=== PATIENT | male | born 1970 ===

== ENCOUNTER 2022-04-26 16:41 | Inpatient (IN) | payer MEDICAID ==
[2022-04-26] MEDS ORDERED: SODIUM CHLORIDE 0.9% 1000 ML 1,000 ML IV ONE ×2 (17:24→20:38)
--- NOTE | 2022-04-26 17:59 | XRay Report ---
CHEST 1 VIEW INDICATION / CLINICAL INFORMATION: Altered Mental Status. COMPARISON: None available. FINDINGS: SUPPORT DEVICES: None. HEART / MEDIASTINUM: No significant abnormality. LUNGS / PLEURA: No significant pulmonary or pleural abnormality. No pneumothorax. ADDITIONAL FINDINGS: No significant additional findings. IMPRESSION: 1. No acute findings. Signer Name: Carlos Eduardo Joyner MD Signed: 04/26/2022 5:55 PM Workstation Name: [facility] [id number]
[2022-04-26] MEDS ORDERED: LORazepam 2 MG/ML VIAL IV ONE (18:11)
[2022-04-26 19:17] LABS: Basophils % (Auto) 0.3 % (0.0-1.8); Eosinophils # (Auto) 0.1 K/mm3 (0.0-0.4); Eosinophils % (Auto) 0.5 % (0.0-4.3); Hematocrit 40.7 % (35.5-45.6); Hemoglobin 13.6 gm/dl (11.8-15.2); Lymphocytes # (Auto) 1.4 K/mm3 (1.2-5.4); Lymphocytes % (Auto) 14.6 % (13.4-35.0); Mean Corpuscular HGB Conc 33 % (32-34); Mean Corpuscular Volume 89 fl (84-94); Monocytes # (Auto) 0.6 K/mm3 (0.0-0.8); Monocytes % (Auto) 6.7 % (0.0-7.3); Platelet Count 242 K/mm3 (140-440); Red Cell Distribution Width 15.9 % (13.2-15.2)
[2022-04-26 19:25] LABS: Alanine Aminotransferase 53 units/L (7-56); Albumin 4.7 g/dL (3.9-5); Blood Urea Nitrogen 24 mg/dL (9-20); Calcium 9.7 mg/dL (8.4-10.2); Hemolysis Index 42
[2022-04-26 19:26] LABS: BUN/Creatinine Ratio 34
--- NOTE | 2022-04-26 19:31 | Cat Scan Report ---
CT HEAD WITHOUT CONTRAST INDICATION / CLINICAL INFORMATION: Altered Mental Status. TECHNIQUE: All CT scans at this location are performed using CT dose reduction for ALARA by means of automated e xposure control. COMPARISON: None available. FINDINGS: HEMORRHAGE: No evidence of intracranial hemorrhage or extra-axial fluid collection. EXTRA-AXIAL SPACES: Focal dilatation of the right sylvian fissure is noted. There is enlargement of c ortical sulci along the lateral and inferior aspect of the right temporal lobe as well and is ex vacu o enlargement of sulci in the right frontal operculum. VENTRICULAR SYSTEM: Ex vacuo enlargement of the temporal horn of the right lateral ventricle is noted . Central greater than cortical atrophy is demonstrated greater than expected for age 52 years. CEREBRAL PARENCHYMA: Encephalomalacia is seen throughout the anterior pole of the left temporal lobe and in the supraorbital gyri and anterior pole of the right frontal lobe. Similar findings are seen t o a lesser degree in the region of the left gyrus rectus. The distribution of these abnormalities sug gests remote traumatic brain injury. Correlation with clinical history is advised. MIDLINE SHIFT OR HERNIATION: There is no mass effect. CEREBELLUM / BRAINSTEM: Brainstem and cerebellum have an unremarkable appearance. MIDLINE STRUCTURES:No abnormalities of the pituitary gland or pineal region are identified. INTRACRANIAL VESSELS: Calcified atherosclerotic plaque is present along the cavernous segments of bot h internal carotid arteries. ORBITS: There is evidence of remote medial wall blowout fracture on the right. There is no indication of recent injury. Orbits have an otherwise unremarkable appearance. SOFT TISSUES of HEAD: No significant abnormality. CALVARIUM: Evaluation of bone windows reveals no abnormalities. PARANASAL SINUSES / MASTOID AIR CELLS: Visualized portions of the paranasal sinuses are free from inf lammatory mucosal disease. Mastoid air cells are normally pneumatized. IMPRESSION: 1. Findings suggest remote traumatic brain injury with encephalomalacia in the right frontal and temp oral lobes, and to a lesser degree, the left frontal lobe as described above. Correlation with clinic al history of head injury is suggested. 2. No acute intracranial abnormality. Signer Name: Maikel Perdomo MD Signed: 04/26/2022 7:27 PM Workstation Name: [id number]
[2022-04-26 19:33] LABS: INR 0.99 (0.87-1.13)
[2022-04-26 19:41] LABS: Amphetamine Screen,Urine Negative; Benzodiazepines Screen,Urine Negative; Cannabinoid Screen,Urine Negative; Cocaine Screen,Urine Negative; Methadone Screen,Urine Negative; Opiate Screen,Urine Negative
--- NOTE | 2022-04-26 20:19 | Emergency Department Report ---
<EUGENIO FELICIANO - Last Filed: 04/27/22 05:56> ED General Adult HPI - General Chief complaint: Altered Mental Status Stated complaint: NOT ACTING RIGHT Time Seen by Provider: 04/26/22 17:24 - Related Data Allergies Allergy/AdvReac Type Severity Reaction Status Date / Time Unable to Assess Allergy Unverified 04/26/22 16:44 ED Course - Reevaluation(s) Reevaluation #1: 04/26/22 21:31 THIS PATIENT WAS SIGNED OUT TO ME BY MY DAY TIME COLLEAG[employer] DR BEE; PATIENT HAVE HISTORY OF TBI; THEREFORE UNKNOWN BASELINE AND PATIENT CURRENTLY LIVES AT [facility] (?) FOR THE PAST 4 DAYS. PATIENT BROUGHT TO THE ER DUE TO CONFUSION. LABS REVEAL THAT PATIENT HAVE ELEVATED CK LEVEL IN 7K AND FLUID HAS BEEN ORDERED AND PENDING REPEAT CK LEVEL DRAW AT 10PM. I HAVE SEEN THE PATIENT MYSELF AND PATIENT SPEAKS ONLY MAORI. APPEARS IN NO DISTRESS/DISCOMFORT. I WILL FOLLOW UP ON THE LABS. 04/27/22 02:30 REVIEW OF LAB SHOWS NO SIGNIFICANT OF CK; I WILL GIVE ADDITIONAL BOLUS OF FLUID. 04/27/22 04:59 PER NURSE, SINCE IN THE ER, PATIENT HAVE ONLY RECEIVED 2 L OF BOLUS AND DIDN'T SEE THE OTHER ORDERS I PLACED; WILL BOLUS NOW SO WE CAN RECHECK PATIENT'S CK AND REST OF THE LAB TO SEE IF ANY IMPROVEMENT. I WILL SIGN OUT TO THE NEXT PHYS ICIAN. IF NO IMPROVEMENT, WILL NEED ADMISSION. ED Medical Decision Making - Lab Data Result diagrams: 04/26/22 18:21 04/27/22 01:25 ED Disposition Clinical Impression: Altered mental status, TBI (traumatic brain injury), COVID Rhabdomyolysis Qualifiers: Rhabdomyolysis type: non-traumatic Qualified Code(s): M62.82 - Rhabdomyolysis Disposition: 30 STILL A PATIENT Condition: Stable Referrals: PRIMARY CARE, [Primary Care Provider] - 3-5 Days <IRAIS NOLAND - Last Filed: 04/27/22 12:25> ED Course - Reevaluation(s) Reevaluation #1: 04/27/22 12:25 This is patient signed to me by Dr Fung while still waiting for a repeat total CK which is resulted to be still significantly elevated at 6798 mg/dl-- after the 3 rd LR-- will given ns 1L bolus at this time and recheck patient. Will also consider admission if not better after the 4th liter. Will also check for rapid covid. 04/27/22 12:29 Unsure the cause at this time but considering that this patient has TBI and will not be able to give helpful explanation--but could be drug side effect induced from neuroleptic, antidepressants, statins, or antipsychotics. No medication list available for review at this time. ED Medical Decision Making - Lab Data Result diagrams: 04/26/22 18:21 04/27/22 06:48 ED Disposition Does the pt Need Aspirin: No <MAINOR BEE - Last Filed: 04/27/22 22:27> ED General Adult HPI - General PUI?: No Source: patient, EMS Mode of arrival: Stretcher Limitations: Altered Mental Status - History of Present Illness Initial comments: T ARRIVING FROM [facility], "NOT ACTING RIGHT" TODAY, HAS BEEN THERE 4 DAYS. -: unknown Improves with: none Worsens with: none Associated Symptoms: confusion, chest pain Treatments Prior to Arrival: none ED Review of Systems ROS: Stated complaint: NOT ACTING RIGHT Other details as noted in HPI Constitutional: denies: chills, fever Eyes: denies: eye pain, eye discharge, vision change ENT: denies: ear pain, throat pain Respiratory: denies: cough, shortness of breath, wheezing Cardiovascular: denies: chest pain, palpitations Endocrine: no symptoms reported Gastrointestinal: denies: abdominal pain, nausea, diarrhea Genitourinary: denies: urgency, dysuria Musculoskeletal: denies: back pain, joint swelling, arthralgia Skin: denies: rash, lesions Neurological: denies: headache, weakness, paresthesias Psychiatric: denies: anxiety, depression Hematological/Lymphatic: denies: easy bleeding, easy bruising ED Past Medical Hx - Past Medical History Previous Medical History?: No Hx Hypertension: No ED Physical Exam - General Limitations: Altered Mental Status General appearance: alert, other (awake but reposnds only to pain ) - Head Head exam: Present: atraumatic, normocephalic - Eye Eye exam: Present: normal appearance - ENT ENT exam: Present: mucous membranes moist - Neck Neck exam: Present: normal inspection - Respiratory Respiratory exam: Present: normal lung sounds bilaterally. Absent: respiratory distress - Cardiovascular Cardiovascular Exam: Present: regular rate, normal rhythm. Absent: systolic murmur, diastolic murmur, rubs, gallop - GI/Abdominal GI/Abdominal exam: Present: soft, normal bowel sounds - Rectal Rectal exam: Present: deferred - Extremities Exam Extremities exam: Present: normal inspection - Back Exam Back exam: Present: normal inspection - Neurological Exam Neurological exam: Present: alert, oriented X3 - Expanded Neurological Exam Expanded Neurological exam: Present: innattentive Best Eye Response ([place]): (4) open spontaneously Best Motor Response ([place]): (5) localizes to pain Best Verbal Response ([place]): (1) no verbal response [place] Total: 10 - Psychiatric Psychiatric exam: Present: flat affect - Skin Skin exam: Present: warm, dry, intact, normal color. Absent: rash ED Course Vital Signs 04/26/22 04/26/22 04/26/22 16:42 17:21 17:31 Temperature 98.5 F Pulse Rate 110 H 112 H Respiratory 18 18 17 Rate Blood Pressure 134/76 Blood Pressure 156/80 [Left] O2 Sat by Pulse 95 97 Oximetry 04/26/22 04/26/22 04/26/22 17:34 17:45 18:13 Temperature 98.3 F Pulse Rate 111 H 107 H Respiratory 20 24 Rate Blood Pressure 134/76 Blood Pressure [Left] O2 Sat by Pulse Oximetry 04/26/22 04/26/22 04/26/22 18:15 18:31 18:45 Temperature Pulse Rate 106 H 89 88 Respiratory 19 19 22 Rate Blood Pressure 122/74 109/50 134/76 Blood Pressure [Left] O2 Sat by Pulse 95 93 96 Oximetry 04/26/22 04/26/22 04/26/22 19:00 19:15 19:31 Temperature Pulse Rate 90 85 76 Respiratory 21 18 15 Rate Blood Pressure 109/50 114/60 106/61 Blood Pressure [Left] O2 Sat by Pulse 96 94 96 Oximetry 04/26/22 04/26/22 04/26/22 19:45 20:01 20:15 Temperature Pulse Rate 84 79 84 Respiratory 20 15 16 Rate Blood Pressure 122/53 107/66 102/65 Blood Pressure [Left] O2 Sat by Pulse 97 98 98 Oximetry 04/26/22 04/26/22 04/26/22 20:31 20:45 20:47 Temperature Pulse Rate 84 81 79 Respiratory 16 16 16 Rate Blood Pressure 104/66 104/66 107/65 Blood Pressure [Left] O2 Sat by Pulse 97 97 98 Oximetry 04/26/22 04/26/22 04/26/22 21:01 21:15 21:31 Temperature Pulse Rate 79 82 104 H Respiratory 17 16 23 Rate Blood Pressure 107/65 100/55 123/76 Blood Pressure [Left] O2 Sat by Pulse 98 97 98 Oximetry 04/26/22 04/26/22 04/26/22 21:45 22:01 22:26 Temperature Pulse Rate 101 H 122 H Respiratory 26 H 16 Rate Blood Pressure 123/76 123/73 153/119 Blood Pressure [Left] O2 Sat by Pulse 97 Oximetry 04/27/22 04/27/22 04/27/22 08:33 08:45 09:01 Temperature Pulse Rate Respiratory Rate Blood Pressure 127/74 104/70 Blood Pressure [Left] O2 Sat by Pulse 95 94 96 Oximetry 04/27/22 04/27/22 04/27/22 09:15 09:31 09:45 Temperature Pulse Rate Respiratory Rate Blood Pressure 104/70 113/71 113/71 Blood Pressure [Left] O2 Sat by Pulse 96 97 97 Oximetry 04/27/22 04/27/22 04/27/22 10:01 10:15 10:31 Temperature Pulse Rate Respiratory Rate Blood Pressure 150/80 150/80 135/76 Blood Pressure [Left] O2 Sat by Pulse 97 98 95 Oximetry 04/27/22 04/27/22 04/27/22 10:33 10:45 11:01 Temperature Pulse Rate 88 Respiratory 18 Rate Blood Pressure 135/76 101/57 Blood Pressure [Left] O2 Sat by Pulse 97 96 97 Oximetry 04/27/22 04/27/22 04/27/22 11:15 11:31 11:45 Temperature Pulse Rate Respiratory Rate Blood Pressure 101/57 109/65 109/65 Blood Pressure [Left] O2 Sat by Pulse 97 97 97 Oximetry 04/27/22 04/27/22 04/27/22 12:01 12:15 12:31 Temperature Pulse Rate Respiratory Rate Blood Pressure 110/66 110/66 112/64 Blood Pressure [Left] O2 Sat by Pulse 98 98 99 Oximetry 04/27/22 04/27/22 04/27/22 12:45 13:01 13:15 Temperature Pulse Rate Respiratory Rate Blood Pressure 110/66 142/81 112/64 Blood Pressure [Left] O2 Sat by Pulse 98 98 96 Oximetry 04/27/22 04/27/22 04/27/22 13:31 13:45 14:00 Temperature Pulse Rate Respiratory Rate Blood Pressure 143/81 143/81 143/81 Blood Pressure [Left] O2 Sat by Pulse 98 98 97 Oximetry 04/27/22 04/27/22 04/27/22 14:16 14:30 15:23 Temperature Pulse Rate Respiratory Rate Blood Pressure 120/69 120/69 117/61 Blood Pressure [Left] O2 Sat by Pulse 95 Oximetry 04/27/22 04/27/22 04/27/22 15:31 15:45 16:01 Temperature Pulse Rate Respiratory Rate Blood Pressure 117/61 117/61 120/69 Blood Pressure [Left] O2 Sat by Pulse 94 95 96 Oximetry 04/27/22 16:15 Temperature Pulse Rate Respiratory Rate Blood Pressure 120/69 Blood Pressure [Left] O2 Sat by Pulse 97 Oximetry ED Medical Decision Making - Lab Data Result diagrams: 04/26/22 18:21 04/27/22 06:48 - EKG Data -: EKG Interpreted by Tx EKG shows normal: sinus rhythm - EKG Data Interpretation: nonspecific ST-T wave amy - Radiology Data Radiology results: report reviewed, image reviewed - Medical Decision Making pt work up was negative except for CK level , fluids given over 24 hours , CK is trending down not able to medically clear him will admit for fluids Critical care attestation.: If time is entered above; I have spent that time in minutes in the direct care of this critically ill patient, excluding procedure time. ED Disposition Is pt being admited?: Yes Does the pt Need Aspirin: No
[2022-04-26 20:29] LABS: C-Reactive Protein 7.2 mg/dL (0.00-1.30)
[2022-04-26 20:55] LABS: Bacteria,Urine 1+ /HPF (Negative)
[2022-04-26 20:58] LABS: Color,Urine Yellow (Yellow)
[2022-04-26 21:00] LABS: Bilirubin,Urine Negative (Negative)
[2022-04-26 21:01] LABS: Blood,Urine Negative (Negative)
[2022-04-26] MEDS ORDERED: LACTATED RINGERS 1,000 ML IV ONE (21:30)
[2022-04-27] MEDS ORDERED: LACTATED RINGERS 1,000 ML IV ONE ×2 (00:25→05:56)
[2022-04-27 02:08] LABS: BUN/Creatinine Ratio 31; Blood Urea Nitrogen 25 mg/dL (9-20); Calcium 9.3 mg/dL (8.4-10.2); Hemolysis Index 6
[2022-04-27 07:29] LABS: Blood Urea Nitrogen 23 mg/dL (9-20); Calcium 9.3 mg/dL (8.4-10.2); Hemolysis Index 2
[2022-04-27 07:30] LABS: BUN/Creatinine Ratio 38
[2022-04-27] MEDS ORDERED: LORazepam 2 MG/ML VIAL IV ONE ×2 (09:55→13:19)
[2022-04-27] MEDS ORDERED: SODIUM CHLORIDE 0.9% 1000 ML 1,000 ML ONE (13:02)
[2022-04-27] MEDS ORDERED: MORPHINE 4 MG/1 ML INJ IV PRN (22:30)
[2022-04-27] MEDS ORDERED: ONDANSETRON 4 MG/2 ML INJ IV PRN (22:30)
[2022-04-27] MEDS ORDERED: MAGNESIUM HYDROXIDE (MOM) ORAL LIQD UDC PO PRN (22:30)
[2022-04-27] MEDS ORDERED: ACETAMINOPHEN 325 MG TAB PO PRN (22:30)
--- NOTE | 2022-04-27 22:41 | History and Physical Report ---
History of Present Illness Date of examination: 04/27/22 Date of admission: 04/27/22 Chief complaint: Altered Mental Status History of present illness: 52-year-old male with known history of TBI and schizophrenia who has been in the emergency room for about 2 days for evaluation of confusion. Prior to presenting in the emergency room patient was living at the [facility] for the past few days. Patient is being prepared for admission into a mental health facility however, labs reveals elevated creatinine kinase in the 0's. Patient was unable to give any history at this time as he is confused and currently in restraints. Work-up in the emergency room: Chest x-ray, COVID test and urine drug screen were unremarkable. Patient has been receiving IV fluid with no significant reduction in the creatinine kinase level. Other labs reveals that patient is mildly dehydrated Patient has been admitted into the medical service for confusion and rhabdomyo lysis. Past History Past Medical History: other (TBI,H/O Recent COVID,H/O Schizophrenia) Past Surgical History: No surgical history Social history: no significant social history Family history: no significant family history Medications and Allergies Allergies Allergy/AdvReac Type Severity Reaction Status Date / Time Unable to Assess Allergy Unverified 04/26/22 16:44 Review of Systems ROS unobtainable: due to mental status Exam - Constitutional Vitals: Temp Pulse Resp BP Pulse Ox 98.3 F 88 18 120/69 97 04/26/22 17:34 04/27/22 10:33 04/27/22 10:33 04/27/22 16:15 04/27/22 16:15 General appearance: Present: no acute distress, well-nourished - EENT Eyes: Present: PERRL, EOM intact. Absent: scleral icterus ENT: hearing intact, clear oral mucosa, dentition normal - Neck Neck: Present: supple, normal ROM - Respiratory Respiratory effort: normal Respiratory: bilateral: CTA - Cardiovascular Rhythm: regular Heart Sounds: Present: S1 & S2. Absent: gallop, systolic murmur, diastolic murmur, rub, click - Extremities Extremities: no ischemia, pulses intact, pulses symmetrical, No edema, normal temperature, normal color, Full ROM Peripheral Pulses: within normal limits - Abdominal General gastrointestinal: Present: soft, non-tender, non-distended, normal bowel sounds. Absent: mass - Integumentary Integumentary: Present: clear, warm, dry, normal turgor. Absent: rash - Musculoskeletal Musculoskeletal: strength equal bilaterally - Psychiatric Psychiatric: cooperative, agitated (In restraint) - Neurologic Neurologic: CNII-XII intact, no focal deficits, moves all extremities HEART Score - HEART Score Troponin: Troponin T < 0.010 ng/mL (0.00-0.029) 04/26/22 18:21 Results - Labs CBC & Chem 7: 04/26/22 18:21 04/27/22 06:48 Labs: Abnormal lab results 04/27/22 04/27/22 04/27/22 Range/Units 01:25 06:48 17:57 Chloride 107.5 H (98-107) mmol/L Carbon Dioxide 16 L 17 L (22-30) mmol/L BUN 25 H 23 H (9-20) mg/dL Creatinine 0.6 L (0.8-1.3) mg/dL Glucose 124 H 116 H (75-100) mg/dL POC Glucose (70-105) mg/dL Total Creatine Kinase 7360 H 6798 H 5272 H (55-170) units/L 04/27/22 Range/Units 18:24 Chloride (98-107) mmol/L Carbon Dioxide (22-30) mmol/L BUN (9-20) mg/dL Creatinine (0.8-1.3) mg/dL Glucose (75-100) mg/dL POC Glucose 139 H (70-105) mg/dL Total Creatine Kinase (55-170) units/L Assessment and Plan Assessment: 1.Altered Mental Status 2.Rhabdomyolysis 3.H/O Recent COVID 4.H/O Schizophrenia Plan: 1.Start on generous IV fluid hydration 2.Monitor chemistry 3.Mental health evaluation 4.Resume routine home medications once reconciled DVT prophylaxis: SQ Heparin Code Status: Full code.
[2022-04-28] MEDS: SODIUM CHLORIDE 0.9% 1000 ML 1,000 ML IV SCH ×3 (03:54→18:02)
[2022-04-28 05:37] LABS: Basophils % (Auto) 0.2 % (0.0-1.8); Eosinophils # (Auto) 0.1 K/mm3 (0.0-0.4); Eosinophils % (Auto) 1.2 % (0.0-4.3); Hematocrit 34.6 % (35.5-45.6); Hemoglobin 11.6 gm/dl (11.8-15.2); Lymphocytes # (Auto) 1.6 K/mm3 (1.2-5.4); Lymphocytes % (Auto) 19.1 % (13.4-35.0); Mean Corpuscular HGB Conc 34 % (32-34); Mean Corpuscular Volume 88 fl (84-94); Monocytes # (Auto) 0.9 K/mm3 (0.0-0.8); Monocytes % (Auto) 10.1 % (0.0-7.3); Platelet Count 220 K/mm3 (140-440); Red Blood Count 3.94 M/mm3 (3.65-5.03); Red Cell Distribution Width 16.1 % (13.2-15.2)
[2022-04-28 06:15] LABS: Blood Urea Nitrogen 15 mg/dL (9-20); Calcium 8.6 mg/dL (8.4-10.2); Hemolysis Index 4
[2022-04-28 06:16] LABS: BUN/Creatinine Ratio 30
[2022-04-28] MEDS: HEPARIN 5,000 UNIT/1 ML VIAL SUB-Q SCH ×3 (06:31→21:27)
--- NOTE | 2022-04-28 09:23 | Progress Note ---
Assessment and Plan Assessment and plan: 1.acute toxic metabolic encephalopathy; Multifactorial secondary to underlying schizophrenia Rhabdomyolysis, electrolyte imbalance hypokalemia Treat underlying cause Psych evaluation if needed 2.Rhabdomyolysis; preserved renal function Aggressive IV hydration Increase oral fluids Monitor input output Monitor renal function 3.H/O Recent COVID; COVID-19 test done in the ER is negative Supportive care 4.H/O Schizophrenia; Continue current home psych medications Psych evaluation -- DVT prophylaxis Subcu heparin --Full CODE STATUS We will closely monitor the patient and adjust management as needed plan of care reviewed With the patient's nurse Disposition; follow clinically, follow psych evaluation recommendation Discharge when medically stable History Interval history: I have seen and examined the patient at the bedside Patient's chart and medications reviewed Patient is slightly confused Vital signs noted Hospitalist Physical - Constitutional Vitals: Temp Pulse Resp BP Pulse Ox 99.2 F 93 H 17 132/63 94 04/28/22 04:21 04/28/22 04:21 04/28/22 04:21 04/28/22 04:21 04/28/22 04:21 General appearance: Present: no acute distress, well-nourished - EENT Eyes: Present: PERRL, EOM intact - Neck Neck: Present: supple, normal ROM - Respiratory Respiratory effort: normal Respiratory: bilateral: diminished, negative: rales, rhonchi, wheezing - Cardiovascular Rhythm: regular Heart Sounds: Present: S1 & S2 - Extremities Extremities: no ischemia, No edema - Abdominal General gastrointestinal: soft, non-tender, non-distended - Integumentary Integumentary: Present: clear, warm - Psychiatric Psychiatric: appropriate mood/affect, cooperative - Neurologic Neurologic: moves all extremities HEART Score - HEART Score Troponin: Troponin T < 0.010 ng/mL (0.00-0.029) 04/26/22 18:21 Results - Labs CBC & Chem 7: 04/28/22 05:07 04/28/22 05:07 Labs: Laboratory Last Values WBC 8.6 K/mm3 (4.5-11.0) 04/28/22 05:07 RBC 3.94 M/mm3 (3.65-5.03) 04/28/22 05:07 Hgb 11.6 gm/dl (11.8-15.2) L 04/28/22 05:07 Hct 34.6 % (35.5-45.6) L D 04/28/22 05:07 MCV 88 fl (84-94) 04/28/22 05:07 MCH 30 pg (28-32) 04/28/22 05:07 MCHC 34 % (32-34) 04/28/22 05:07 RDW 16.1 % (13.2-15.2) H 04/28/22 05:07 Plt Count 220 K/mm3 (140-440) 04/28/22 05:07 Lymph % (Auto) 19.1 % (13.4-35.0) 04/28/22 05:07 [place] % (Auto) 10.1 % (0.0-7.3) H 04/28/22 05:07 Eos % (Auto) 1.2 % (0.0-4.3) 04/28/22 05:07 Baso % (Auto) 0.2 % (0.0-1.8) 04/28/22 05:07 Lymph # (Auto) 1.6 K/mm3 (1.2-5.4) 04/28/22 05:07 [place] # (Auto) 0.9 K/mm3 (0.0-0.8) H 04/28/22 05:07 Eos # (Auto) 0.1 K/mm3 (0.0-0.4) 04/28/22 05:07 Baso # (Auto) 0.0 K/mm3 (0.0-0.1) 04/28/22 05:07 Seg Neutrophils % 69.4 % (40.0-70.0) 04/28/22 05:07 Seg Neutrophils # 5.9 K/mm3 (1.8-7.7) 04/28/22 05:07 PT 14.2 Sec. (12.2-14.9) 04/26/22 18:21 INR 0.99 (0.87-1.13) 04/26/22 18:21 Sodium 145 mmol/L (137-145) 04/28/22 05:07 Potassium 3.4 mmol/L (3.6-5.0) L 04/28/22 05:07 Chloride 111.1 mmol/L (98-107) H 04/28/22 05:07 Carbon Dioxide 19 mmol/L (22-30) L 04/28/22 05:07 Anion Gap 18 mmol/L 04/28/22 05:07 BUN 15 mg/dL (9-20) 04/28/22 05:07 Creatinine 0.5 mg/dL (0.8-1.3) L 04/28/22 05:07 Estimated GFR > 60 ml/min 04/28/22 05:07 BUN/Creatinine Ratio 30 % 04/28/22 05:07 Glucose 120 mg/dL (75-100) H 04/28/22 05:07 POC Glucose 110 mg/dL (70-105) H 04/28/22 07:45 Lactic Acid 1.40 mmol/L (0.7-2.0) 04/26/22 18:21 Calcium 8.6 mg/dL (8.4-10.2) 04/28/22 05:07 Total Bilirubin 0.50 mg/dL (0.1-1.2) 04/26/22 18:21 AST 119 units/L (5-40) H 04/26/22 18:21 ALT 53 units/L (7-56) 04/26/22 18:21 Alkaline Phosphatase 100 units/L (35-129) 04/26/22 18:21 Ammonia 26.0 umol/L (25-60) 04/26/22 21:44 Total Creatine Kinase 5272 units/L (55-170) H 04/27/22 17:57 Troponin T < 0.010 ng/mL (0.00-0.029) 04/26/22 18:21 C-Reactive Protein 7.20 mg/dL (0.00-1.30) H 04/26/22 18:21 NT-Pro-B Natriuret Pep 75.52 pg/mL (0-900) 04/26/22 18:21 Total Protein 7.6 g/dL (6.3-8.2) 04/26/22 18:21 Albumin 4.7 g/dL (3.9-5) 04/26/22 18:21 Albumin/Globulin Ratio 1.6 % 04/26/22 18:21 Urine Color Yellow (Yellow) 04/26/22 18:50 Urine Turbidity Clear (Clear) 04/26/22 18:50 Urine pH 5.0 (5.0-7.0) 04/26/22 18:50 Ur Specific [place] 1.035 (1.003-1.030) H 04/26/22 18:50 Urine Protein 100 mg/dl mg/dL (Negative) 04/26/22 18:50 Urine Glucose (UA) 150 mg/dL (Negative) 04/26/22 18:50 Urine Ketones 100 mg/dL (Negative) 04/26/22 18:50 Urine Blood Negative (Negative) 04/26/22 18:50 Urine Nitrite Negative (Negative) 04/26/22 18:50 Ur Reducing Substances Not Reportable 04/26/22 18:50 Urine Bilirubin Negative (Negative) 04/26/22 18:50 Urine Ictotest Not Reportable 04/26/22 18:50 Urine Urobilinogen 0.0 mg/dL (<2.0) 04/26/22 18:50 Ur Leukocyte Esterase Negative (Negative) 04/26/22 18:50 Urine WBC (Auto) 1.0 /HPF (0.0-6.0) 04/26/22 18:50 Urine RBC (Auto) 2.0 /HPF (0.0-6.0) 04/26/22 18:50 Urine Bacteria (Auto) 1+ /HPF (Negative) 04/26/22 18:50 Urine Opiates Screen Negative 04/26/22 18:50 Urine Methadone Screen Negative 04/26/22 18:50 Acetaminophen 5.0 ug/mL (10.0-30.0) L 04/26/22 18:21 Ur Barbiturates Screen Negative 04/26/22 18:50 Ur Phencyclidine Scrn Negative 04/26/22 18:50 Ur Amphetamines Screen Negative 04/26/22 18:50 U Benzodiazepines Scrn Negative 04/26/22 18:50 Urine Cocaine Screen Negative 04/26/22 18:50 U Marijuana (THC) Screen Negative 04/26/22 18:50 Drugs of Abuse Note Disclamer 04/26/22 18:50 Plasma/Serum Alcohol < 0.01 % (0-0.07) 04/26/22 18:21 SARS-CoV-2 (PCR) Negative (Negative) 04/27/22 14:01 Microbiology: Microbiology 04/26/22 18:21 Peripheral/Venous Blood Culture - Preliminary NO GROWTH AFTER 24 HOURS 04/26/22 18:21 Peripheral/Venous Blood Culture - Preliminary NO GROWTH AFTER 24 HOURS [place]/IV: Voiding Method Indwelling Catheter Active Medications - Current Medications Current Medications: Generic Name Dose Route Start Last Admin Trade Name Freq PRN Reason Stop Dose Admin Acetaminophen 650 mg 04/27/22 22:30 Acetaminophen 325 Mg Tab PO Q4H PRN Pain MILD(1-3)/Fever >100.5/GUZMAN Heparin Sodium (Porcine) 5,000 unit 04/28/22 06:00 04/28/22 06:31 Heparin 5,000 Unit/1 Ml Vial SUB-Q 5,000 unit Q8HR GOOD Administration Sodium Chloride 1,000 mls @ 150 mls/hr 04/27/22 22:30 04/28/22 03:54 Nacl 0.9% 1000 Ml IV 150 mls/hr DIRECT GOOD Administration Magnesium Hydroxide 30 ml 04/27/22 22:30 Magnesium Hydroxide (Mom) Oral Liqd Udc PO Q4H PRN Constipation Morphine Sulfate 2 mg 04/27/22 22:30 Morphine 2 Mg/1 Ml Inj IV Q4H PRN Pain, Moderate (4-6) Morphine Sulfate 4 mg 04/27/22 22:30 Morphine 4 Mg/1 Ml Inj IV Q4H PRN Pain , Severe (7-10) Ondansetron HCl 4 mg 04/27/22 22:30 Ondansetron 4 Mg/2 Ml Inj IV Q8H PRN Nausea And Vomiting Sodium Chloride 10 ml 04/28/22 10:00 Sodium Chloride 0.9% 10 Ml Flush Syringe IV BID GOOD Sodium Chloride 10 ml 04/27/22 22:30 Sodium Chloride 0.9% 10 Ml Flush Syringe IV PRN PRN LINE FLUSH
--- NOTE | 2022-04-28 13:38 | Electrocardiograph Report ---
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
[2022-04-28] MEDS ORDERED: LORazepam 2 MG/ML VIAL IV ONE (15:55)
[2022-04-28] MEDS ORDERED: POTASSIUM CHLORIDE ER 20 MEQ TAB PO SCH (15:56)
[2022-04-29 06:11] LABS: Alanine Aminotransferase 42 units/L (7-56); Albumin 3.8 g/dL (3.9-5); Blood Urea Nitrogen 8 mg/dL (9-20); Hemolysis Index 6
[2022-04-29 06:12] LABS: BUN/Creatinine Ratio 16
[2022-04-29] MEDS: HEPARIN 5,000 UNIT/1 ML VIAL SUB-Q SCH ×3 (06:18→22:27)
[2022-04-29] MEDS: SODIUM CHLORIDE 0.9% 1000 ML 1,000 ML IV SCH ×3 (06:20→20:45)
[2022-04-29] MEDS ORDERED: POTASSIUM CHLORIDE ER 20 MEQ TAB PO ONE (10:02)
[2022-04-29] MEDS: LORazepam 2 MG/ML VIAL IM PRN (12:57)
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
--- NOTE | 2022-04-29 15:47 | Progress Note ---
Assessment and Plan Assessment and Plan Assessment and plan: 1.acute toxic metabolic encephalopathy; EtOH dependence and underlying schizophrenia 2.Rhabdomyolysis; preserved renal function Aggressive IV hydration Increase oral fluids Monitor input output Monitor renal function 3.H/O Recent COVID; COVID-19 test done in the ER is negative Supportive care 4.H/O Schizophrenia; Continue current home psych medications Psych evaluation 5) Hypokalemia Supplemented -- DVT prophylaxis Subcu heparin --Full CODE STATUS We will closely monitor the patient and adjust management as needed plan of care reviewed With the patient's nurse Disposition; follow clinically, follow psych evaluation recommendation Discharge when medically stable Subjective Date of service: 04/29/22 Principal diagnosis: Rhabdomyolysis, acute metabolic encephalopathy Interval history: 52-year-old male with known history of TBI and schizophrenia who has been in the emergency room for about 2 days for evaluation of confusion. Prior to presenting in the emergency room patient was living at the [facility] for the past few days. Patient is being prepared for admission into a mental health facility however, labs reveals elevated creatinine kinase in the 7000's. Patient was unable to give any history at this time as he is confused and c urrently in restraints. Work-up in the emergency room: Chest x-ray, COVID test and urine drug screen were unremarkable. Patient has been receiving IV fluid with no significant reduction in the creati nine kinase level. Other labs reveals that patient is mildly dehydrated Patient has been admitted into the medical service for confusion and rhabdomyolysis. History Interval history: I have seen and examined the patient at the bedside Patient's chart and medications reviewed Patient is slightly confused Vital signs noted Objective - Constitutional Vitals: Vital Signs - 12hr 04/29/22 10:15 O2 Sat by Pulse 97 Oximetry General appearance: Present: mild distress, well-nourished - EENT Eyes: PERRL, EOM intact ENT: hearing intact, clear oral mucosa Ears: bilateral: normal - Neck Neck: supple, normal ROM - Respiratory Respiratory effort: normal Respiratory: bilateral: CTA - Breasts Breasts: normal - Cardiovascular Heart rate: 78 Rhythm: regular Heart Sounds: Present: S1 & S2. Absent: gallop, rub Extremities: pulses intact, No edema, normal color, Full ROM - Gastrointestinal General gastrointestinal: Present: soft, non-tender, non-distended, normal bowel sounds - Genitourinary Male genitourinary: normal - Integumentary Integumentary: clear, warm, dry - Musculoskeletal Musculoskeletal: 1, strength equal bilaterally - Neurologic Neurologic: moves all extremities - Psychiatric Psychiatric: memory intact, appropriate mood/affect, intact judgment & insight - Allied health notes Allied health notes reviewed: nursing, case management - Labs CBC & Chem 7: 04/28/22 05:07 04/29/22 05:08 Labs: Abnormal lab results 04/29/22 04/29/22 04/29/22 Range/Units 05:08 08:41 12:02 Sodium 146 H (137-145) mmol/L Potassium 3.3 L (3.6-5.0) mmol/L Chloride 112.8 H (98-107) mmol/L Carbon Dioxide 19 L (22-30) mmol/L BUN 8 L (9-20) mg/dL Creatinine 0.5 L (0.8-1.3) mg/dL Glucose 123 H (75-100) mg/dL POC Glucose 121 H 117 H (70-105) mg/dL AST 56 H (5-40) units/L Total Creatine Kinase 2304 H (55-170) units/L Albumin 3.8 L (3.9-5) g/dL HEART Score - HEART Score Troponin: Troponin T < 0.010 ng/mL (0.00-0.029) 04/26/22 18:21
[2022-04-29 17:53] LABS: Calcium 8.7 mg/dL (8.4-10.2)
[2022-04-29] MEDS: LORazepam 2 MG/ML VIAL IV PRN (20:45)
[2022-04-29] MEDS: traZODone 50 MG TAB PO SCH (22:26)
[2022-04-30] MEDS: SODIUM CHLORIDE 0.9% 1000 ML 1,000 ML IV SCH ×3 (06:25→19:23)
[2022-04-30] MEDS: HEPARIN 5,000 UNIT/1 ML VIAL SUB-Q SCH ×3 (06:25→22:21)
--- NOTE | 2022-04-30 07:48 | Progress Note ---
Assessment and Plan Assessment and Plan Assessment and plan: 1.acute toxic metabolic encephalopathy; Schizophrenia psychosis 2.Rhabdomyolysis; preserved renal function Aggressive IV hydration Increase oral fluids Monitor input output Monitor renal function 3.H/O Recent COVID; COVID-19 test done in the ER is negative Supportive care 4.H/O Schizophrenia; Continue current home psych medications Psych evaluation 5) Hypokalemia Supplemented -- DVT prophylaxis Subcu heparin --Full CODE STATUS We will closely monitor the patient and adjust management as needed plan of care reviewed With the patient's nurse Disposition; follow clinically, follow psych evaluation recommendation Discharge when medically stable Subjective Date of service: 04/30/22 Principal diagnosis: Rhabdomyolysis, delirium tremens?? Interval history: 52-year-old male with known history of TBI and schizophrenia who has been in the emergency room for about 2 days for evaluation of confusion. Prior to presenting in the emergency room patient was living at the [facility] for the past few days. Patient is being prepared for admission into a mental health facility however, labs reveals elevated creatinine kinase in the 0's. Patient was unable to give any history at this time as he is confused and currently in restraints. Work-up in the emergency room: Chest x-ray, COVID test and urine drug screen were unremarkable. Patient has been receiving IV fluid with no significant reduction in the creatinine kinase level. Other labs reveals that patient is mildly dehydrated Patient has been admitted into the medical service for confusion and rhabdomyolysis . 04/30/2022 Patient still agitated and altered sensorium History Interval history: I have seen and examined the patient at the bedside Patient's chart and medications reviewed Patient is slightly confused Vital signs noted Objective - Constitutional Vitals: Vital Signs - 12hr 04/29/22 04/29/22 04/30/22 20:38 20:40 04:35 Temperature 100.0 F H 99.8 F H Pulse Rate 88 86 Respiratory 18 18 Rate Blood Pressure 122/69 167/88 O2 Sat by Pulse 95 95 97 Oximetry General appearance: Present: no acute distress, well-nourished - EENT Eyes: PERRL, EOM intact ENT: hearing intact, clear oral mucosa Ears: bilateral: normal - Neck Neck: supple, normal ROM - Respiratory Respiratory effort: normal Respiratory: bilateral: CTA - Breasts Breasts: normal - Cardiovascular Heart rate: 78 Rhythm: regular Heart Sounds: Present: S1 & S2. Absent: gallop, rub Extremities: pulses intact, No edema, normal color, Full ROM - Gastrointestinal General gastrointestinal: Present: soft, non-tender, non-distended, normal bowel sounds - Genitourinary Male genitourinary: normal - Integumentary Integumentary: clear, warm, dry - Musculoskeletal Musculoskeletal: 1, strength equal bilaterally - Neurologic Neurologic: moves all extremities - Psychiatric Psychiatric: memory intact, appropriate mood/affect, intact judgment & insight - Labs CBC & Chem 7: 05/01/22 04:48 05/01/22 04:48 Labs: Abnormal lab results 04/29/22 04/29/22 04/29/22 Range/Units 08:41 12:02 17:00 POC Glucose 121 H 117 H 135 H (70-105) mg/dL Phosphorus (2.5-4.5) mg/dL Total Creatine Kinase (55-170) units/L 04/29/22 04/29/22 04/30/22 Range/Units 17:10 22:43 03:46 POC Glucose 151 H (70-105) mg/dL Phosphorus 1.60 L (2.5-4.5) mg/dL Total Creatine Kinase 3537 H (55-170) units/L HEART Score - HEART Score Troponin: Troponin T < 0.010 ng/mL (0.00-0.029) 04/26/22 18:21
[2022-04-30] MEDS: LORazepam 2 MG/ML VIAL IV PRN ×2 (11:14→19:19)
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
[2022-04-30] MEDS: traZODone 50 MG TAB PO SCH (22:22)
[2022-05-01 05:43] LABS: Basophils # (Auto) 0.1 K/mm3 (0.0-0.1); Basophils % (Auto) 0.8 % (0.0-1.8); Eosinophils # (Auto) 0.2 K/mm3 (0.0-0.4); Hematocrit 35.7 % (35.5-45.6); Lymphocytes # (Auto) 2.4 K/mm3 (1.2-5.4); Mean Corpuscular HGB Conc 34 % (32-34); Mean Corpuscular Volume 87 fl (84-94); Monocytes # (Auto) 0.7 K/mm3 (0.0-0.8); Monocytes % (Auto) 9.7 % (0.0-7.3); Platelet Count 246 K/mm3 (140-440); Red Blood Count 4.09 M/mm3 (3.65-5.03); Red Cell Distribution Width 15.8 % (13.2-15.2)
[2022-05-01] MEDS: HEPARIN 5,000 UNIT/1 ML VIAL SUB-Q SCH ×3 (05:50→22:32)
[2022-05-01] MEDS: LORazepam 2 MG/ML VIAL IV PRN (05:50)
[2022-05-01 06:08] LABS: Alanine Aminotransferase 41 units/L (7-56); Albumin 3.9 g/dL (3.9-5); Blood Urea Nitrogen 8 mg/dL (9-20); Calcium 8.8 mg/dL (8.4-10.2); Hemolysis Index 4
[2022-05-01 06:11] LABS: BUN/Creatinine Ratio 20
[2022-05-01] MEDS: SODIUM CHLORIDE 0.9% 1000 ML 1,000 ML IV SCH ×2 (08:07→22:35)
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
[2022-05-01] MEDS: LORazepam 2 MG/ML VIAL IM PRN (15:50)
[2022-05-01] MEDS: traZODone 50 MG TAB PO SCH (22:33)
--- NOTE | 2022-05-01 23:42 | Progress Note ---
Assessment and Plan Assessment and Plan Assessment and plan: 1.acute toxic metabolic encephalopathy; Schizophrenia psychosis 2.Rhabdomyolysis; preserved renal function Aggressive IV hydration Increase oral fluids Monitor input output Monitor renal function 3.H/O Recent COVID; COVID-19 test done in the ER is negative Supportive care 4.H/O Schizophrenia; Continue current home psych medications Psych evaluation 5) Hypokalemia Supplemented -- DVT prophylaxis Subcu heparin --Full CODE STATUS We will closely monitor the patient and adjust management as needed plan of care reviewed With the patient's nurse Disposition; follow clinically, follow psych evaluation recommendation Discharge when medically stable Subjective Date of service: 05/01/22 Principal diagnosis: Rhabdomyolysis, delirium tremens?? Interval history: 52-year-old male with known history of TBI and schizophrenia who has been in the emergency room for about 2 days for evaluation of confusion. Prior to presenting in the emergency room patient was living at the [facility] for the past few days. Patient is being prepared for admission into a mental health facility however, labs reveals elevated creatinine kinase in the 0's. Patient was unable to give any history at this time as he is confused and currently in restraints. Work-up in the emergency room: Chest x-ray, COVID test and urine drug screen were unremarkable. Patient has been receiving IV fluid with no significant reduction in the creatinine kinase level. Other labs reveals that patient is mildly dehydrated Patient has been admitted into the medical service for confusion and rhabdomyolysis . 04/30/2022 Patient still agitated and altered sensorium 05/01/22 Patient seen today in his room. Patient was asleep. Per nursing staff patient was agitated earlier on today and was given prn. No significant changes. Will continue to follow. Objective - Constitutional Vitals: Vital Signs - 12hr 05/01/22 05/01/22 05/01/22 16:51 20:00 21:45 Temperature 99.1 F 98.6 F Pulse Rate 58 L 59 L Respiratory 22 20 20 Rate Blood Pressure 137/68 144/67 O2 Sat by Pulse 94 100 96 Oximetry General appearance: Present: no acute distress, well-nourished - EENT Eyes: PERRL, EOM intact ENT: hearing intact, clear oral mucosa Ears: bilateral: normal - Neck Neck: supple, normal ROM - Respiratory Respiratory effort: normal Respiratory: bilateral: CTA - Breasts Breasts: normal - Cardiovascular Heart rate: 78 Rhythm: regular Heart Sounds: Present: S1 & S2. Absent: gallop, rub Extremities: pulses intact, No edema, normal color, Full ROM - Gastrointestinal General gastrointestinal: Present: soft, non-tender, non-distended, normal bowel sounds - Genitourinary Male genitourinary: normal - Integumentary Integumentary: clear, warm, dry - Musculoskeletal Musculoskeletal: 1, strength equal bilaterally - Neurologic Neurologic: moves all extremities - Psychiatric Psychiatric: memory intact, appropriate mood/affect, intact judgment & insight - Labs CBC & Chem 7: 05/01/22 04:48 05/01/22 04:48 Labs: Abnormal lab results 05/01/22 05/01/22 05/01/22 Range/Units 04:48 04:48 11:17 RDW 15.8 H (13.2-15.2) % [place] % (Auto) 9.7 H (0.0-7.3) % Potassium 3.0 L (3.6-5.0) mmol/L Chloride 108.2 H (98-107) mmol/L BUN 8 L (9-20) mg/dL Creatinine 0.4 L (0.8-1.3) mg/dL Glucose 106 H (75-100) mg/dL POC Glucose 106 H (70-105) mg/dL AST 57 H (5-40) units/L Total Creatine Kinase 3244 H (55-170) units/L 05/01/22 Range/Units 16:48 RDW (13.2-15.2) % [place] % (Auto) (0.0-7.3) % Potassium (3.6-5.0) mmol/L Chloride (98-107) mmol/L BUN (9-20) mg/dL Creatinine (0.8-1.3) mg/dL Glucose (75-100) mg/dL POC Glucose 115 H (70-105) mg/dL AST (5-40) units/L Total Creatine Kinase (55-170) units/L HEART Score - HEART Score Troponin: Troponin T < 0.010 ng/mL (0.00-0.029) 04/26/22 18:21
[2022-05-02] MEDS: LORazepam 2 MG/ML VIAL IV PRN ×2 (01:11→19:51)
[2022-05-02] MEDS: HEPARIN 5,000 UNIT/1 ML VIAL SUB-Q SCH ×2 (05:28→14:05)
[2022-05-02] MEDS: SODIUM CHLORIDE 0.9% 1000 ML 1,000 ML IV SCH ×2 (05:28→12:33)
[2022-05-02 06:49] LABS: Blood Urea Nitrogen 5 mg/dL (9-20); Calcium 8.5 mg/dL (8.4-10.2); Hemolysis Index 53
[2022-05-02 06:50] LABS: BUN/Creatinine Ratio 13
[2022-05-02] MEDS ORDERED: POTASSIUM CHLORIDE 10 MEQ 10 MEQ/100 ML BAG IV SCH (08:00)
[2022-05-02] MEDS ORDERED: POTASSIUM CHLORIDE ER 20 MEQ TAB PO SCH ×2 (08:00→12:00)
--- NOTE | 2022-05-02 08:38 | Progress Note ---
Assessment and Plan Assessment and plan: --acute toxic metabolic encephalopathy; Multifactorial secondary to underlying schizophrenia Rhabdomyolysis, electrolyte imbalance hypokalemia [id number] today, continue rigorous IV hydration Input of monitoring, monitor renal function Psych following --Rhabdomyolysis; with preserved renal function Aggressive IV hydration, input output monitoring Increase oral fluids, Monitor input output Monitor renal function and CK levels --.H/O Recent COVID; COVID-19 test done in the ER is negative Supportive care --H/O Schizophrenia; on 1013 status Continue current home psych medications Psych evaluation --History of traumatic brain injury; Supportive care, monitor the patient - DVT prophylaxis Subcu heparin --Full CODE STATUS We will closely monitor the patient and adjust management as needed plan of care reviewed With the patient's nurse Disposition; follow clinically, follow psych evaluation recommendation Psych recommended inpatient psych placement when medically stable We will closely monitor the patient and adjust management as needed Plan of care reviewed with the patient's nurse and the case management Closely monitor electrolytes History Interval history: I have seen and examined the patient at the bedside this morning Patient's chart and medications reviewed Patient is sleeping easily awakens minimally communicative Patient is 1013 status product safety coordinator in the room No new overnight events reported per nursing Vital signs stable Hospitalist Physical - Constitutional Vitals: Temp Pulse Resp BP Pulse Ox 98.6 F 54 L 20 150/58 94 05/02/22 05:13 05/02/22 05:13 05/02/22 05:13 05/02/22 05:13 05/02/22 05:13 General appearance: Present: no acute distress, well-nourished - EENT Eyes: Present: PERRL, EOM intact - Neck Neck: Present: supple, normal ROM - Respiratory Respiratory effort: normal Respiratory: bilateral: diminished, negative: rales, rhonchi, wheezing - Cardiovascular Rhythm: regular Heart Sounds: Present: S1 & S2 - Extremities Extremities: no ischemia, No edema - Abdominal General gastrointestinal: soft, non-tender, non-distended, normal bowel sounds - Integumentary Integumentary: Present: clear, warm - Psychiatric Psychiatric: appropriate mood/affect, cooperative - Neurologic Neurologic: CNII-XII intact, moves all extremities HEART Score - HEART Score Troponin: Troponin T < 0.010 ng/mL (0.00-0.029) 04/26/22 18:21 Results - Labs CBC & Chem 7: 07/24/22 04:48 05/02/22 05:53 Labs: Laboratory Last Values WBC 7.3 K/mm3 (4.5-11.0) 05/01/22 04:48 RBC 4.09 M/mm3 (3.65-5.03) 05/01/22 04:48 Hgb 12.0 gm/dl (11.8-15.2) 05/01/22 04:48 Hct 35.7 % (35.5-45.6) 05/01/22 04:48 MCV 87 fl (84-94) 05/01/22 04:48 MCH 29 pg (28-32) 05/01/22 04:48 MCHC 34 % (32-34) 05/01/22 04:48 RDW 15.8 % (13.2-15.2) H 05/01/22 04:48 Plt Count 246 K/mm3 (140-440) 05/01/22 04:48 Lymph % (Auto) 32.0 % (13.4-35.0) 05/01/22 04:48 [place] % (Auto) 9.7 % (0.0-7.3) H 05/01/22 04:48 Eos % (Auto) 3.0 % (0.0-4.3) 05/01/22 04:48 Baso % (Auto) 0.8 % (0.0-1.8) 05/01/22 04:48 Lymph # (Auto) 2.4 K/mm3 (1.2-5.4) 05/01/22 04:48 [place] # (Auto) 0.7 K/mm3 (0.0-0.8) 05/01/22 04:48 Eos # (Auto) 0.2 K/mm3 (0.0-0.4) 05/01/22 04:48 Baso # (Auto) 0.1 K/mm3 (0.0-0.1) 05/01/22 04:48 Seg Neutrophils % 54.5 % (40.0-70.0) 05/01/22 04:48 Seg Neutrophils # 4.0 K/mm3 (1.8-7.7) 05/01/22 04:48 PT 14.2 Sec. (12.2-14.9) 04/26/22 18:21 INR 0.99 (0.87-1.13) 04/26/22 18:21 Sodium 141 mmol/L (137-145) 05/02/22 05:53 Potassium 2.8 mmol/L (3.6-5.0) L* 05/02/22 05:53 Chloride 103.9 mmol/L (98-107) 05/02/22 05:53 Carbon Dioxide 24 mmol/L (22-30) 05/02/22 05:53 Anion Gap 16 mmol/L 05/02/22 05:53 BUN 5 mg/dL (9-20) L 05/02/22 05:53 Creatinine 0.4 mg/dL (0.8-1.3) L 05/02/22 05:53 Estimated GFR > 60 ml/min 05/02/22 05:53 BUN/Creatinine Ratio 13 % 05/02/22 05:53 Glucose 106 mg/dL (75-100) H 05/02/22 05:53 POC Glucose 107 mg/dL (70-105) H 05/02/22 07:19 Lactic Acid 1.40 mmol/L (0.7-2.0) 04/26/22 18:21 Calcium 8.5 mg/dL (8.4-10.2) 05/02/22 05:53 Phosphorus 1.60 mg/dL (2.5-4.5) L 04/29/22 17:10 Magnesium 1.80 mg/dL (1.7-2.3) 04/29/22 17:10 Total Bilirubin 0.40 mg/dL (0.1-1.2) 05/01/22 04:48 AST 57 units/L (5-40) H 05/01/22 04:48 ALT 41 units/L (7-56) 05/01/22 04:48 Alkaline Phosphatase 76 units/L (35-129) 05/01/22 04:48 Ammonia 26.0 umol/L (25-60) 04/26/22 21:44 Total Creatine Kinase 1662 units/L (55-170) H 05/02/22 05:53 Troponin T < 0.010 ng/mL (0.00-0.029) 04/26/22 18:21 C-Reactive Protein 7.20 mg/dL (0.00-1.30) H 04/26/22 18:21 NT-Pro-B Natriuret Pep 75.52 pg/mL (0-900) 04/26/22 18:21 Total Protein 6.6 g/dL (6.3-8.2) 05/01/22 04:48 Albumin 3.9 g/dL (3.9-5) 05/01/22 04:48 Albumin/Globulin Ratio 1.4 % 05/01/22 04:48 Amylase 33 units/L (27-131) 04/29/22 17:10 Urine Color Yellow (Yellow) 04/26/22 18:50 Urine Turbidity Clear (Clear) 04/26/22 18:50 Urine pH 5.0 (5.0-7.0) 04/26/22 18:50 Ur Specific [place] 1.035 (1.003-1.030) H 04/26/22 18:50 Urine Protein 100 mg/dl mg/dL (Negative) 04/26/22 18:50 Urine Glucose (UA) 150 mg/dL (Negative) 04/26/22 18:50 Urine Ketones 100 mg/dL (Negative) 04/26/22 18:50 Urine Blood Negative (Negative) 04/26/22 18:50 Urine Nitrite Negative (Negative) 04/26/22 18:50 Ur Reducing Substances Not Reportable 04/26/22 18:50 Urine Bilirubin Negative (Negative) 04/26/22 18:50 Urine Ictotest Not Reportable 04/26/22 18:50 Urine Urobilinogen 0.0 mg/dL (<2.0) 04/26/22 18:50 Ur Leukocyte Esterase Negative (Negative) 04/26/22 18:50 Urine WBC (Auto) 1.0 /HPF (0.0-6.0) 04/26/22 18:50 Urine RBC (Auto) 2.0 /HPF (0.0-6.0) 04/26/22 18:50 Urine Bacteria (Auto) 1+ /HPF (Negative) 04/26/22 18:50 Urine Opiates Screen Negative 04/26/22 18:50 Urine Methadone Screen Negative 04/26/22 18:50 Acetaminophen 5.0 ug/mL (10.0-30.0) L 04/26/22 18:21 Ur Barbiturates Screen Negative 04/26/22 18:50 Ur Phencyclidine Scrn Negative 04/26/22 18:50 Ur Amphetamines Screen Negative 04/26/22 18:50 U Benzodiazepines Scrn Negative 04/26/22 18:50 Urine Cocaine Screen Negative 04/26/22 18:50 U Marijuana (THC) Screen Negative 04/26/22 18:50 Drugs of Abuse Note Disclamer 04/26/22 18:50 Plasma/Serum Alcohol < 0.01 % (0-0.07) 04/26/22 18:21 SARS-CoV-2 (PCR) Negative (Negative) 04/27/22 14:01 Microbiology: Microbiology 04/26/22 18:21 Peripheral/Venous Blood Culture - Final NO GROWTH AFTER 5 DAYS 04/26/22 18:21 Peripheral/Venous Blood Culture - Final NO GROWTH AFTER 5 DAYS [place]/IV: Voiding Method Indwelling Catheter Active Medications - Current Medications Current Medications: Generic Name Dose Route Start Last Admin Trade Name Freq PRN Reason Stop Dose Admin Acetaminophen 650 mg 04/27/22 22:30 04/29/22 17:47 Acetaminophen 325 Mg Tab PO 650 mg Q4H PRN Administration Pain MILD(1-3)/Fever >100.5/GUZMAN Heparin Sodium (Porcine) 5,000 unit 04/28/22 06:00 05/02/22 05:28 Heparin 5,000 Unit/1 Ml Vial SUB-Q 5,000 unit Q8HR GOOD Administration Sodium Chloride 1,000 mls @ 150 mls/hr 04/27/22 22:30 05/02/22 05:28 Nacl 0.9% 1000 Ml IV 150 mls/hr DIRECT GOOD Administration Potassium Chloride 10 meq in 100 mls @ 100 mls/hr 05/02/22 08:00 Kcl 10meq/100ml IV 05/02/22 10:00 ONCE@0800 GOOD Lorazepam 1 mg 04/29/22 12:26 05/01/22 15:50 Lorazepam 2 Mg/Ml Vial IM 1 mg Q6HR PRN Administration Agitation Lorazepam 2 mg 04/29/22 15:38 05/02/22 01:11 Lorazepam 2 Mg/Ml Vial IV 2 mg Q1H PRN Administration CIWA-Ar 8-15 Magnesium Hydroxide 30 ml 04/27/22 22:30 Magnesium Hydroxide (Mom) Oral Liqd Udc PO Q4H PRN Constipation Morphine Sulfate 2 mg 04/27/22 22:30 Morphine 2 Mg/1 Ml Inj IV Q4H PRN Pain, Moderate (4-6) Morphine Sulfate 4 mg 04/27/22 22:30 Morphine 4 Mg/1 Ml Inj IV Q4H PRN Pain , Severe (7-10) Ondansetron HCl 4 mg 04/27/22 22:30 Ondansetron 4 Mg/2 Ml Inj IV Q8H PRN Nausea And Vomiting Potassium Chloride 40 meq 05/02/22 08:00 Potassium Chloride Er 20 Meq Tab PO 05/02/22 12:00 ONCE@0800 GOOD Sodium Chloride 10 ml 04/28/22 10:00 05/01/22 22:33 Sodium Chloride 0.9% 10 Ml Flush Syringe IV 10 ml BID GOOD Administration Sodium Chloride 10 ml 04/27/22 22:30 Sodium Chloride 0.9% 10 Ml Flush Syringe IV PRN PRN LINE FLUSH Trazodone HCl 50 mg 04/29/22 22:00 05/01/22 22:33 Trazodone 50 Mg Tab PO Not Given QHS GOOD
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
[2022-05-02] MEDS ORDERED: MAGNESIUM SULFATE 2 GM/50 ML BAG IV ONE (16:37)
[2022-05-02] MEDS ORDERED: FUROSEMIDE 40 MG/4 ML INJ IV ONE (16:39)
[2022-05-02] MEDS ORDERED: hydrALAZINE 20 MG/1 ML INJ IV PRN (16:40)
[2022-05-03] MEDS: LORazepam 2 MG/ML VIAL IV PRN ×2 (00:36→23:12)
[2022-05-03] MEDS: HEPARIN 5,000 UNIT/1 ML VIAL SUB-Q SCH ×4 (00:36→23:01)
[2022-05-03] MEDS: traZODone 50 MG TAB PO SCH ×2 (00:37→23:01)
[2022-05-03] MEDS: hydrALAZINE 10 MG TAB PO SCH ×4 (00:40→23:01)
[2022-05-03] MEDS: LORazepam 2 MG/ML VIAL IM PRN (05:23)
--- NOTE | 2022-05-03 08:05 | Progress Note ---
Assessment and Plan Assessment and plan: --Severe hypokalemia; K2.7 Replenished with oral KCl 40 mEq Q 3 hours x 2 and IV KCl 20 mEq x 1 Patient's magnesium is within normal limits Closely monitor electrolytes --acute toxic metabolic encephalopathy; Multifactorial secondary to underlying schizophrenia Rhabdomyolysis, electrolyte imbalance hypokalemia [id number] today, continue rigorous IV hydration Input of monitoring, monitor renal function Psych following --Rhabdomyolysis; with preserved renal function Aggressive IV hydration, input output monitoring Increase oral fluids, Monitor input output Monitor renal function and CK levels Trending down from [id number] today[05/03] --.H/O Recent COVID; COVID-19 test done in the ER is negative Supportive care --H/O Schizophrenia; on 1012 status Continue current home psych medications Management per psych --History of traumatic brain injury; Supportive care, monitor the patient --Obesity; BMI 36.2 Patient needs diet modification exercise as tolerated and weight reduction,When he is medically stable -- DVT prophylaxis Subcu heparin --Full CODE STATUS We will closely monitor the patient and adjust management as needed plan of care reviewed With the patient's nurse Disposition; follow clinically, follow psych evaluation recommendation Psych recommended inpatient psych placement when medically stable We will closely monitor the patient and adjust management as needed Plan of care reviewed with the patient's nurse and the case management Closely monitor electrolytes 05/03; CK levels trending down, continue IV hydration Severe hypokalemia, replenished with p.o. 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 energy consultant in the room Vital signs noted Hospitalist Physical - Constitutional Vitals: Temp Pulse Resp BP Pulse Ox 99.2 F 83 16 103/56 93 05/03/22 04:26 05/03/22 05:15 05/03/22 04:26 05/03/22 05:15 05/03/22 04:26 General appearance: Present: no acute distress, well-nourished - EENT Eyes: Present: PERRL, EOM intact - Neck Neck: Present: supple, normal ROM - Respiratory Respiratory effort: normal Respiratory: bilateral: diminished, negative: rales, rhonchi, wheezing - Cardiovascular Rhythm: regular Heart Sounds: Present: S1 & S2 - Extremities Extremities: no ischemia, No edema - Abdominal General gastrointestinal: soft, non-tender, non-distended, normal bowel sounds - Integumentary Integumentary: Present: clear, warm - Psychiatric Psychiatric: appropriate mood/affect, cooperative - Neurologic Neurologic: CNII-XII intact, moves all extremities HEART Score - HEART Score Troponin: Troponin T < 0.010 ng/mL (0.00-0.029) 04/26/22 18:21 Results - Labs CBC & Chem 7: 05/01/22 04:48 05/03/22 05:52 Labs: Laboratory Last Values WBC 7.3 K/mm3 (4.5-11.0) 05/01/22 04:48 RBC 4.09 M/mm3 (3.65-5.03) 05/01/22 04:48 Hgb 12.0 gm/dl (11.8-15.2) 05/01/22 04:48 Hct 35.7 % (35.5-45.6) 05/01/22 04:48 MCV 87 fl (84-94) 05/01/22 04:48 MCH 29 pg (28-32) 05/01/22 04:48 MCHC 34 % (32-34) 05/01/22 04:48 RDW 15.8 % (13.2-15.2) H 05/01/22 04:48 Plt Count 246 K/mm3 (140-440) 05/01/22 04:48 Lymph % (Auto) 32.0 % (13.4-35.0) 05/01/22 04:48 [place] % (Auto) 9.7 % (0.0-7.3) H 05/01/22 04:48 Eos % (Auto) 3.0 % (0.0-4.3) 05/01/22 04:48 Baso % (Auto) 0.8 % (0.0-1.8) 05/01/22 04:48 Lymph # (Auto) 2.4 K/mm3 (1.2-5.4) 05/01/22 04:48 [place] # (Auto) 0.7 K/mm3 (0.0-0.8) 05/01/22 04:48 Eos # (Auto) 0.2 K/mm3 (0.0-0.4) 05/01/22 04:48 Baso # (Auto) 0.1 K/mm3 (0.0-0.1) 05/01/22 04:48 Seg Neutrophils % 54.5 % (40.0-70.0) 05/01/22 04:48 Seg Neutrophils # 4.0 K/mm3 (1.8-7.7) 05/01/22 04:48 PT 14.2 Sec. (12.2-14.9) 04/26/22 18:21 INR 0.99 (0.87-1.13) 04/26/22 18:21 Sodium 141 mmol/L (137-145) 05/02/22 05:53 Potassium 2.7 mmol/L (3.6-5.0) L* D 05/03/22 05:52 Chloride 103.9 mmol/L (98-107) 05/02/22 05:53 Carbon Dioxide 24 mmol/L (22-30) 05/02/22 05:53 Anion Gap 16 mmol/L 05/02/22 05:53 BUN 5 mg/dL (9-20) L 05/02/22 05:53 Creatinine 0.4 mg/dL (0.8-1.3) L 05/02/22 05:53 Estimated GFR > 60 ml/min 05/02/22 05:53 BUN/Creatinine Ratio 13 % 05/02/22 05:53 Glucose 106 mg/dL (75-100) H 05/02/22 05:53 POC Glucose 134 mg/dL (70-105) H 05/02/22 21:34 Lactic Acid 1.40 mmol/L (0.7-2.0) 04/26/22 18:21 Calcium 8.5 mg/dL (8.4-10.2) 05/02/22 05:53 Phosphorus 1.60 mg/dL (2.5-4.5) L 04/29/22 17:10 Magnesium 2.30 mg/dL (1.7-2.3) 05/03/22 05:52 Total Bilirubin 0.40 mg/dL (0.1-1.2) 05/01/22 04:48 AST 57 units/L (5-40) H 05/01/22 04:48 ALT 41 units/L (7-56) 05/01/22 04:48 Alkaline Phosphatase 76 units/L (35-129) 05/01/22 04:48 Ammonia 26.0 umol/L (25-60) 04/26/22 21:44 Total Creatine Kinase 1106 units/L (55-170) H 05/03/22 05:52 Troponin T < 0.010 ng/mL (0.00-0.029) 04/26/22 18:21 C-Reactive Protein 7.20 mg/dL (0.00-1.30) H 04/26/22 18:21 NT-Pro-B Natriuret Pep 75.52 pg/mL (0-900) 04/26/22 18:21 Total Protein 6.6 g/dL (6.3-8.2) 05/01/22 04:48 Albumin 3.9 g/dL (3.9-5) 05/01/22 04:48 Albumin/Globulin Ratio 1.4 % 05/01/22 04:48 Amylase 33 units/L (27-131) 04/29/22 17:10 Urine Color Yellow (Yellow) 04/26/22 18:50 Urine Turbidity Clear (Clear) 04/26/22 18:50 Urine pH 5.0 (5.0-7.0) 04/26/22 18:50 Ur Specific [place] 1.035 (1.003-1.030) H 04/26/22 18:50 Urine Protein 100 mg/dl mg/dL (Negative) 04/26/22 18:50 Urine Glucose (UA) 150 mg/dL (Negative) 04/26/22 18:50 Urine Ketones 100 mg/dL (Negative) 04/26/22 18:50 Urine Blood Negative (Negative) 04/26/22 18:50 Urine Nitrite Negative (Negative) 04/26/22 18:50 Ur Reducing Substances Not Reportable 04/26/22 18:50 Urine Bilirubin Negative (Negative) 04/26/22 18:50 Urine Ictotest Not Reportable 04/26/22 18:50 Urine Urobilinogen 0.0 mg/dL (<2.0) 04/26/22 18:50 Ur Leukocyte Esterase Negative (Negative) 04/26/22 18:50 Urine WBC (Auto) 1.0 /HPF (0.0-6.0) 04/26/22 18:50 Urine RBC (Auto) 2.0 /HPF (0.0-6.0) 04/26/22 18:50 Urine Bacteria (Auto) 1+ /HPF (Negative) 04/26/22 18:50 Urine Opiates Screen Negative 04/26/22 18:50 Urine Methadone Screen Negative 04/26/22 18:50 Acetaminophen 5.0 ug/mL (10.0-30.0) L 04/26/22 18:21 Ur Barbiturates Screen Negative 04/26/22 18:50 Ur Phencyclidine Scrn Negative 04/26/22 18:50 Ur Amphetamines Screen Negative 04/26/22 18:50 U Benzodiazepines Scrn Negative 04/26/22 18:50 Urine Cocaine Screen Negative 04/26/22 18:50 U Marijuana (THC) Screen Negative 04/26/22 18:50 Drugs of Abuse Note Disclamer 04/26/22 18:50 Plasma/Serum Alcohol < 0.01 % (0-0.07) 04/26/22 18:21 SARS-CoV-2 (PCR) Negative (Negative) 04/27/22 14:01 [place]/IV: Voiding Method Indwelling Catheter Active Medications - Current Medications Current Medications: Generic Name Dose Route Start Last Admin Trade Name Freq PRN Reason Stop Dose Admin Acetaminophen 650 mg 04/27/22 22:30 04/29/22 17:47 Acetaminophen 325 Mg Tab PO 650 mg Q4H PRN Administration Pain MILD(1-3)/Fever >100.5/GUZMAN Furosemide 40 mg 05/03/22 10:00 Furosemide 40 Mg/4 Ml Inj IV QDAY GOOD Heparin Sodium (Porcine) 5,000 unit 04/28/22 06:00 05/03/22 05:16 Heparin 5,000 Unit/1 Ml Vial SUB-Q 5,000 unit Q8HR GOOD Administration Hydralazine HCl 10 mg 05/02/22 22:00 05/03/22 05:15 Hydralazine 10 Mg Tab PO Not Given Q8HR GOOD Hydralazine HCl 10 mg 05/02/22 16:40 05/03/22 00:37 Hydralazine 20 Mg/1 Ml Inj IV 10 mg Q4HR PRN Administration Hypertension Sodium Chloride 1,000 mls @ 150 mls/hr 04/27/22 22:30 05/02/22 12:33 Nacl 0.9% 1000 Ml IV 150 mls/hr DIRECT GOOD Administration Potassium Chloride 10 meq in 100 mls @ 100 mls/hr 05/03/22 09:00 Kcl 10meq/100ml IV 05/03/22 10:59 Q1H GOOD Lorazepam 1 mg 04/29/22 12:26 05/03/22 05:23 Lorazepam 2 Mg/Ml Vial IM 1 mg Q6HR PRN Administration Agitation Lorazepam 2 mg 04/29/22 15:38 05/03/22 00:36 Lorazepam 2 Mg/Ml Vial IV 2 mg Q1H PRN Administration CIWA-Ar 8-15 Magnesium Hydroxide 30 ml 04/27/22 22:30 Magnesium Hydroxide (Mom) Oral Liqd Udc PO Q4H PRN Constipation Morphine Sulfate 2 mg 04/27/22 22:30 Morphine 2 Mg/1 Ml Inj IV Q4H PRN Pain, Moderate (4-6) Morphine Sulfate 4 mg 04/27/22 22:30 Morphine 4 Mg/1 Ml Inj IV Q4H PRN Pain , Severe (7-10) Ondansetron HCl 4 mg 04/27/22 22:30 Ondansetron 4 Mg/2 Ml Inj IV Q8H PRN Nausea And Vomiting Potassium Chloride 40 meq 05/03/22 08:00 Potassium Chloride Er 20 Meq Tab PO 05/03/22 11:01 Q3H GOOD Sodium Chloride 10 ml 04/28/22 10:00 05/03/22 00:39 Sodium Chloride 0.9% 10 Ml Flush Syringe IV 10 ml BID GOOD Administration Sodium Chloride 10 ml 04/27/22 22:30 Sodium Chloride 0.9% 10 Ml Flush Syringe IV PRN PRN LINE FLUSH Trazodone HCl 50 mg 04/29/22 22:00 05/03/22 00:37 Trazodone 50 Mg Tab PO 50 mg QHS GOOD Administration
[2022-05-03] MEDS: POTASSIUM CHLORIDE ER 20 MEQ TAB PO SCH ×2 (08:10→11:20)
[2022-05-03] MEDS: FUROSEMIDE 40 MG/4 ML INJ IV SCH (09:57)
[2022-05-03] MEDS: POTASSIUM CHLORIDE 10 MEQ 10 MEQ/100 ML BAG IV SCH ×2 (09:57→11:20)
[2022-05-03] MEDS: SODIUM CHLORIDE 0.9% 1000 ML 1,000 ML IV SCH ×2 (10:30→23:19)
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
[2022-05-04] MEDS: hydrALAZINE 10 MG TAB PO SCH ×3 (05:53→22:32)
[2022-05-04] MEDS: HEPARIN 5,000 UNIT/1 ML VIAL SUB-Q SCH ×3 (08:19→22:32)
[2022-05-04] MEDS: FUROSEMIDE 40 MG/4 ML INJ IV SCH (09:28)
--- NOTE | 2022-05-04 09:28 | Progress Note ---
Assessment and Plan Assessment and plan: --Severe hypokalemia; K2.7 Replenished with oral KCl 40 mEq Q 3 hours x 2 and IV KCl 20 mEq x 1 Patient's magnesium is within normal limits Closely monitor electrolytes --acute toxic metabolic encephalopathy; Multifactorial secondary to underlying schizophrenia Rhabdomyolysis, electrolyte imbalance hypokalemia [id number] today, continue rigorous IV hydration Input of monitoring, monitor renal function Psych following --Rhabdomyolysis; with preserved renal function Aggressive IV hydration, input output monitoring Increase oral fluids, Monitor input output Monitor renal function and CK levels Trending down from [id number] today[05/03] --.H/O Recent COVID; COVID-19 test done in the ER is negative Supportive care --H/O Schizophrenia; on 1012 status Continue current home psych medications Management per psych --History of traumatic brain injury; Supportive care, monitor the patient --Obesity; BMI 36.2 Patient needs diet modification exercise as tolerated and weight reduction,When he is medically stable -- DVT prophylaxis Subcu heparin --Full CODE STATUS We will closely monitor the patient and adjust management as needed plan of care reviewed With the patient's nurse Disposition; follow clinically, follow psych evaluation recommendation Psych recommended inpatient psych placement when medically stable We will closely monitor the patient and adjust management as needed Plan of care reviewed with the patient's nurse and the case management Closely monitor electrolytes 05/03; CK levels trending down, continue IV hydration Severe hypokalemia, replenished with p.o. 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, Patient is 1013 status Psych following Vital signs noted Hospitalist Physical - Constitutional Vitals: Temp Pulse Resp BP Pulse Ox 98.9 F 92 H 20 150/68 92 05/04/22 08:42 05/04/22 08:42 05/04/22 08:42 05/04/22 08:42 05/04/22 08:42 General appearance: Present: no acute distress, well-nourished - EENT Eyes: Present: PERRL, EOM intact - Neck Neck: Present: supple, normal ROM - Respiratory Respiratory effort: normal Respiratory: bilateral: diminished, negative: rales, rhonchi, wheezing - Cardiovascular Rhythm: regular Heart Sounds: Present: S1 & S2 - Extremities Extremities: no ischemia, No edema - Abdominal General gastrointestinal: soft, non-tender, non-distended, normal bowel sounds - Integumentary Integumentary: Present: clear, warm - Psychiatric Psychiatric: appropriate mood/affect, agitated - Neurologic Neurologic: moves all extremities HEART Score - HEART Score Troponin: Troponin T < 0.010 ng/mL (0.00-0.029) 04/26/22 18:21 Results - Labs CBC & Chem 7: 05/01/22 04:48 05/04/22 10:56 Labs: Laboratory Last Values WBC 7.3 K/mm3 (4.5-11.0) 05/01/22 04:48 RBC 4.09 M/mm3 (3.65-5.03) 05/01/22 04:48 Hgb 12.0 gm/dl (11.8-15.2) 05/01/22 04:48 Hct 35.7 % (35.5-45.6) 05/01/22 04:48 MCV 87 fl (84-94) 05/01/22 04:48 MCH 29 pg (28-32) 05/01/22 04:48 MCHC 34 % (32-34) 05/01/22 04:48 RDW 15.8 % (13.2-15.2) H 05/01/22 04:48 Plt Count 246 K/mm3 (140-440) 05/01/22 04:48 Lymph % (Auto) 32.0 % (13.4-35.0) 05/01/22 04:48 [place] % (Auto) 9.7 % (0.0-7.3) H 05/01/22 04:48 Eos % (Auto) 3.0 % (0.0-4.3) 05/01/22 04:48 Baso % (Auto) 0.8 % (0.0-1.8) 05/01/22 04:48 Lymph # (Auto) 2.4 K/mm3 (1.2-5.4) 05/01/22 04:48 [place] # (Auto) 0.7 K/mm3 (0.0-0.8) 05/01/22 04:48 Eos # (Auto) 0.2 K/mm3 (0.0-0.4) 05/01/22 04:48 Baso # (Auto) 0.1 K/mm3 (0.0-0.1) 05/01/22 04:48 Seg Neutrophils % 54.5 % (40.0-70.0) 05/01/22 04:48 Seg Neutrophils # 4.0 K/mm3 (1.8-7.7) 05/01/22 04:48 PT 14.2 Sec. (12.2-14.9) 04/26/22 18:21 INR 0.99 (0.87-1.13) 04/26/22 18:21 Sodium 141 mmol/L (137-145) 05/02/22 05:53 Potassium 2.7 mmol/L (3.6-5.0) L* D 05/03/22 05:52 Chloride 103.9 mmol/L (98-107) 05/02/22 05:53 Carbon Dioxide 24 mmol/L (22-30) 05/02/22 05:53 Anion Gap 16 mmol/L 05/02/22 05:53 BUN 5 mg/dL (9-20) L 05/02/22 05:53 Creatinine 0.4 mg/dL (0.8-1.3) L 05/02/22 05:53 Estimated GFR > 60 ml/min 05/02/22 05:53 BUN/Creatinine Ratio 13 % 05/02/22 05:53 Glucose 106 mg/dL (75-100) H 05/02/22 05:53 POC Glucose 100 mg/dL (70-105) 05/04/22 07:23 Lactic Acid 1.40 mmol/L (0.7-2.0) 04/26/22 18:21 Calcium 8.5 mg/dL (8.4-10.2) 05/02/22 05:53 Phosphorus 1.60 mg/dL (2.5-4.5) L 04/29/22 17:10 Magnesium 2.30 mg/dL (1.7-2.3) 05/03/22 05:52 Total Bilirubin 0.40 mg/dL (0.1-1.2) 05/01/22 04:48 AST 57 units/L (5-40) H 05/01/22 04:48 ALT 41 units/L (7-56) 05/01/22 04:48 Alkaline Phosphatase 76 units/L (35-129) 05/01/22 04:48 Ammonia 26.0 umol/L (25-60) 04/26/22 21:44 Total Creatine Kinase 777 units/L (55-170) H 05/04/22 05:09 Troponin T < 0.010 ng/mL (0.00-0.029) 04/26/22 18:21 C-Reactive Protein 7.20 mg/dL (0.00-1.30) H 04/26/22 18:21 NT-Pro-B Natriuret Pep 75.52 pg/mL (0-900) 04/26/22 18:21 Total Protein 6.6 g/dL (6.3-8.2) 05/01/22 04:48 Albumin 3.9 g/dL (3.9-5) 05/01/22 04:48 Albumin/Globulin Ratio 1.4 % 05/01/22 04:48 Amylase 33 units/L (27-131) 04/29/22 17:10 Urine Color Yellow (Yellow) 04/26/22 18:50 Urine Turbidity Clear (Clear) 04/26/22 18:50 Urine pH 5.0 (5.0-7.0) 04/26/22 18:50 Ur Specific [place] 1.035 (1.003-1.030) H 04/26/22 18:50 Urine Protein 100 mg/dl mg/dL (Negative) 04/26/22 18:50 Urine Glucose (UA) 150 mg/dL (Negative) 04/26/22 18:50 Urine Ketones 100 mg/dL (Negative) 04/26/22 18:50 Urine Blood Negative (Negative) 04/26/22 18:50 Urine Nitrite Negative (Negative) 04/26/22 18:50 Ur Reducing Substances Not Reportable 04/26/22 18:50 Urine Bilirubin Negative (Negative) 04/26/22 18:50 Urine Ictotest Not Reportable 04/26/22 18:50 Urine Urobilinogen 0.0 mg/dL (<2.0) 04/26/22 18:50 Ur Leukocyte Esterase Negative (Negative) 04/26/22 18:50 Urine WBC (Auto) 1.0 /HPF (0.0-6.0) 04/26/22 18:50 Urine RBC (Auto) 2.0 /HPF (0.0-6.0) 04/26/22 18:50 Urine Bacteria (Auto) 1+ /HPF (Negative) 04/26/22 18:50 Urine Opiates Screen Negative 04/26/22 18:50 Urine Methadone Screen Negative 04/26/22 18:50 Acetaminophen 5.0 ug/mL (10.0-30.0) L 04/26/22 18:21 Ur Barbiturates Screen Negative 04/26/22 18:50 Ur Phencyclidine Scrn Negative 04/26/22 18:50 Ur Amphetamines Screen Negative 04/26/22 18:50 U Benzodiazepines Scrn Negative 04/26/22 18:50 Urine Cocaine Screen Negative 04/26/22 18:50 U Marijuana (THC) Screen Negative 04/26/22 18:50 Drugs of Abuse Note Disclamer 04/26/22 18:50 Plasma/Serum Alcohol < 0.01 % (0-0.07) 04/26/22 18:21 SARS-CoV-2 (PCR) Negative (Negative) 04/27/22 14:01 [place]/IV: Voiding Method Indwelling Catheter Active Medications - Current Medications Current Medications: Generic Name Dose Route Start Last Admin Trade Name Freq PRN Reason Stop Dose Admin Acetaminophen 650 mg 04/27/22 22:30 04/29/22 17:47 Acetaminophen 325 Mg Tab PO 650 mg Q4H PRN Administration Pain MILD(1-3)/Fever >100.5/GUZMAN Furosemide 40 mg 05/03/22 10:00 05/03/22 09:57 Furosemide 40 Mg/4 Ml Inj IV 40 mg QDAY GOOD Administration Heparin Sodium (Porcine) 5,000 unit 04/28/22 06:00 05/04/22 08:19 Heparin 5,000 Unit/1 Ml Vial SUB-Q Not Given Q8HR GOOD Hydralazine HCl 10 mg 05/02/22 22:00 05/04/22 05:53 Hydralazine 10 Mg Tab PO 10 mg Q8HR GOOD Administration Hydralazine HCl 10 mg 05/02/22 16:40 05/03/22 00:37 Hydralazine 20 Mg/1 Ml Inj IV 10 mg Q4HR PRN Administration Hypertension Sodium Chloride 1,000 mls @ 150 mls/hr 04/27/22 22:30 05/03/22 23:19 Nacl 0.9% 1000 Ml IV 150 mls/hr DIRECT GOOD Administration Lorazepam 1 mg 04/29/22 12:26 05/03/22 05:23 Lorazepam 2 Mg/Ml Vial IM 1 mg Q6HR PRN Administration Agitation Lorazepam 2 mg 04/29/22 15:38 05/03/22 23:12 Lorazepam 2 Mg/Ml Vial IV 2 mg Q1H PRN Administration CIWA-Ar 8-15 Magnesium Hydroxide 30 ml 04/27/22 22:30 Magnesium Hydroxide (Mom) Oral Liqd Udc PO Q4H PRN Constipation Morphine Sulfate 2 mg 04/27/22 22:30 Morphine 2 Mg/1 Ml Inj IV Q4H PRN Pain, Moderate (4-6) Morphine Sulfate 4 mg 04/27/22 22:30 Morphine 4 Mg/1 Ml Inj IV Q4H PRN Pain , Severe (7-10) Ondansetron HCl 4 mg 04/27/22 22:30 Ondansetron 4 Mg/2 Ml Inj IV Q8H PRN Nausea And Vomiting Sodium Chloride 10 ml 04/28/22 10:00 05/03/22 23:02 Sodium Chloride 0.9% 10 Ml Flush Syringe IV 10 ml BID GOOD Administration Sodium Chloride 10 ml 04/27/22 22:30 Sodium Chloride 0.9% 10 Ml Flush Syringe IV PRN PRN LINE FLUSH Trazodone HCl 50 mg 04/29/22 22:00 05/03/22 23:01 Trazodone 50 Mg Tab PO 50 mg QHS GOOD Administration
[2022-05-04] MEDS: LORazepam 2 MG/ML VIAL IM PRN ×2 (09:34→19:32)
[2022-05-04] MEDS: MORPHINE 2 MG/1 ML INJ IV PRN ×2 (09:35→23:13)
[2022-05-04] MEDS: SODIUM CHLORIDE 0.9% 1000 ML 1,000 ML IV SCH ×2 (12:02→22:36)
[2022-05-04] MEDS: traZODone 50 MG TAB PO SCH (22:32)
[2022-05-05] MEDS: hydrALAZINE 10 MG TAB PO SCH ×3 (06:00→21:26)
[2022-05-05] MEDS: HEPARIN 5,000 UNIT/1 ML VIAL SUB-Q SCH ×3 (06:00→21:27)
[2022-05-05 07:17] LABS: Blood Urea Nitrogen 15 mg/dL (9-20); Calcium 9.3 mg/dL (8.4-10.2); Hemolysis Index 293
[2022-05-05 07:22] LABS: BUN/Creatinine Ratio 38
--- NOTE | 2022-05-05 09:06 | Progress Note ---
Assessment and Plan Assessment and plan: --Severe hypokalemia; K2.7 Replenished with oral KCl 40 mEq Q 3 hours x 2 and IV KCl 20 mEq x 1 Patient's magnesium is within normal limits Closely monitor electrolytes --acute toxic metabolic encephalopathy; Multifactorial secondary to underlying schizophrenia Rhabdomyolysis, electrolyte imbalance hypokalemia [id number] today, continue rigorous IV hydration Input of monitoring, monitor renal function Psych following --Rhabdomyolysis; with preserved renal function Aggressive IV hydration, input output monitoring Increase oral fluids, Monitor input output Monitor renal function and CK levels Trending down from [id number] today[05/03] --.H/O Recent COVID; COVID-19 test done in the ER is negative Supportive care --H/O Schizophrenia; on 1012 status Continue current home psych medications Management per psych --History of traumatic brain injury; Supportive care, monitor the patient --Obesity; BMI 36.2 Patient needs diet modification exercise as tolerated and weight reduction,When he is medically stable -- DVT prophylaxis Subcu heparin --Full CODE STATUS We will closely monitor the patient and adjust management as needed plan of care reviewed With the patient's nurse Disposition; follow clinically, follow psych evaluation recommendation Psych recommended inpatient psych placement when medically stable We will closely monitor the patient and adjust management as needed Plan of care reviewed with the patient's nurse and the case management Closely monitor electrolytes 05/03; CK levels trending down, continue IV hydration Severe hypokalemia, replenished with p.o. and IV KCl Monitor electrolytes 05/04; CK today is 777, potassium and magnesium levels are within normal limits Continue current management, medically stable for discharge Disposition per psych 05/05; patient is back to baseline, check with the family Discharge planning once psych clears Patient is medically stable for discharge History Interval history: Seen and examined the patient at the bedside Patient's chart and medications reviewed Patient is noncommunicative lethargic Not in acute distress slightly agitated Restraints for safety No new events reported by the nursing Vital signs noted Hospitalist Physical - Constitutional Vitals: Temp Pulse Resp BP Pulse Ox 98.4 F 101 H 20 159/97 95 05/05/22 05:21 05/05/22 05:21 05/05/22 05:21 05/05/22 05:21 05/05/22 05:21 General appearance: Present: no acute distress, well-nourished - EENT Eyes: Present: PERRL, EOM intact - Neck Neck: Present: supple, normal ROM - Respiratory Respiratory effort: normal Respiratory: bilateral: diminished, negative: rales, rhonchi, wheezing - Cardiovascular Rhythm: regular Heart Sounds: Present: S1 & S2 - Extremities Extremities: no ischemia, No edema - Abdominal General gastrointestinal: soft, non-tender, non-distended, normal bowel sounds - Integumentary Integumentary: Present: clear, warm - Psychiatric Psychiatric: other - Neurologic Neurologic: moves all extremities (Noncommunicative), other (Noncommunicative) HEART Score - HEART Score Troponin: Troponin T < 0.010 ng/mL (0.00-0.029) 04/26/22 18:21 Results - Labs CBC & Chem 7: 05/01/22 04:48 05/05/22 05:43 Labs: Laboratory Last Values WBC 7.3 K/mm3 (4.5-11.0) 05/01/22 04:48 RBC 4.09 M/mm3 (3.65-5.03) 05/01/22 04:48 Hgb 12.0 gm/dl (11.8-15.2) 05/01/22 04:48 Hct 35.7 % (35.5-45.6) 05/01/22 04:48 MCV 87 fl (84-94) 05/01/22 04:48 MCH 29 pg (28-32) 05/01/22 04:48 MCHC 34 % (32-34) 05/01/22 04:48 RDW 15.8 % (13.2-15.2) H 05/01/22 04:48 Plt Count 246 K/mm3 (140-440) 05/01/22 04:48 Lymph % (Auto) 32.0 % (13.4-35.0) 05/01/22 04:48 [place] % (Auto) 9.7 % (0.0-7.3) H 05/01/22 04:48 Eos % (Auto) 3.0 % (0.0-4.3) 05/01/22 04:48 Baso % (Auto) 0.8 % (0.0-1.8) 05/01/22 04:48 Lymph # (Auto) 2.4 K/mm3 (1.2-5.4) 05/01/22 04:48 [place] # (Auto) 0.7 K/mm3 (0.0-0.8) 05/01/22 04:48 Eos # (Auto) 0.2 K/mm3 (0.0-0.4) 05/01/22 04:48 Baso # (Auto) 0.1 K/mm3 (0.0-0.1) 05/01/22 04:48 Seg Neutrophils % 54.5 % (40.0-70.0) 05/01/22 04:48 Seg Neutrophils # 4.0 K/mm3 (1.8-7.7) 05/01/22 04:48 PT 14.2 Sec. (12.2-14.9) 04/26/22 18:21 INR 0.99 (0.87-1.13) 04/26/22 18:21 Sodium 140 mmol/L (137-145) 05/05/22 05:43 Potassium 4.7 mmol/L (3.6-5.0) D 05/05/22 05:43 Chloride 106.0 mmol/L (98-107) 05/05/22 05:43 Carbon Dioxide 18 mmol/L (22-30) L 05/05/22 05:43 Anion Gap 21 mmol/L 05/05/22 05:43 BUN 15 mg/dL (9-20) 05/05/22 05:43 Creatinine 0.4 mg/dL (0.8-1.3) L 05/05/22 05:43 Estimated GFR > 60 ml/min 05/05/22 05:43 BUN/Creatinine Ratio 38 % 05/05/22 05:43 Glucose 113 mg/dL (75-100) H 05/05/22 05:43 POC Glucose 115 mg/dL (70-105) H 05/05/22 07:30 Lactic Acid 1.40 mmol/L (0.7-2.0) 04/26/22 18:21 Calcium 9.3 mg/dL (8.4-10.2) 05/05/22 05:43 Phosphorus 1.60 mg/dL (2.5-4.5) L 04/29/22 17:10 Magnesium 1.90 mg/dL (1.7-2.3) 05/05/22 05:43 Total Bilirubin 0.40 mg/dL (0.1-1.2) 05/01/22 04:48 AST 57 units/L (5-40) H 05/01/22 04:48 ALT 41 units/L (7-56) 05/01/22 04:48 Alkaline Phosphatase 76 units/L (35-129) 05/01/22 04:48 Ammonia 26.0 umol/L (25-60) 04/26/22 21:44 Total Creatine Kinase 915 units/L (55-170) H 05/05/22 05:43 Troponin T < 0.010 ng/mL (0.00-0.029) 04/26/22 18:21 C-Reactive Protein 7.20 mg/dL (0.00-1.30) H 04/26/22 18:21 NT-Pro-B Natriuret Pep 75.52 pg/mL (0-900) 04/26/22 18:21 Total Protein 6.6 g/dL (6.3-8.2) 05/01/22 04:48 Albumin 3.9 g/dL (3.9-5) 05/01/22 04:48 Albumin/Globulin Ratio 1.4 % 05/01/22 04:48 Amylase 33 units/L (27-131) 04/29/22 17:10 Urine Color Yellow (Yellow) 04/26/22 18:50 Urine Turbidity Clear (Clear) 04/26/22 18:50 Urine pH 5.0 (5.0-7.0) 04/26/22 18:50 Ur Specific [place] 1.035 (1.003-1.030) H 04/26/22 18:50 Urine Protein 100 mg/dl mg/dL (Negative) 04/26/22 18:50 Urine Glucose (UA) 150 mg/dL (Negative) 04/26/22 18:50 Urine Ketones 100 mg/dL (Negative) 04/26/22 18:50 Urine Blood Negative (Negative) 04/26/22 18:50 Urine Nitrite Negative (Negative) 04/26/22 18:50 Ur Reducing Substances Not Reportable 04/26/22 18:50 Urine Bilirubin Negative (Negative) 04/26/22 18:50 Urine Ictotest Not Reportable 04/26/22 18:50 Urine Urobilinogen 0.0 mg/dL (<2.0) 04/26/22 18:50 Ur Leukocyte Esterase Negative (Negative) 04/26/22 18:50 Urine WBC (Auto) 1.0 /HPF (0.0-6.0) 04/26/22 18:50 Urine RBC (Auto) 2.0 /HPF (0.0-6.0) 04/26/22 18:50 Urine Bacteria (Auto) 1+ /HPF (Negative) 04/26/22 18:50 Urine Opiates Screen Negative 04/26/22 18:50 Urine Methadone Screen Negative 04/26/22 18:50 Acetaminophen 5.0 ug/mL (10.0-30.0) L 04/26/22 18:21 Ur Barbiturates Screen Negative 04/26/22 18:50 Ur Phencyclidine Scrn Negative 04/26/22 18:50 Ur Amphetamines Screen Negative 04/26/22 18:50 U Benzodiazepines Scrn Negative 04/26/22 18:50 Urine Cocaine Screen Negative 04/26/22 18:50 U Marijuana (THC) Screen Negative 04/26/22 18:50 Drugs of Abuse Note Disclamer 04/26/22 18:50 Plasma/Serum Alcohol < 0.01 % (0-0.07) 04/26/22 18:21 SARS-CoV-2 (PCR) Negative (Negative) 04/27/22 14:01 [place]/IV: Voiding Method Indwelling Catheter Active Medications - Current Medications Current Medications: Generic Name Dose Route Start Last Admin Trade Name Freq PRN Reason Stop Dose Admin Acetaminophen 650 mg 04/27/22 22:30 04/29/22 17:47 Acetaminophen 325 Mg Tab PO 650 mg Q4H PRN Administration Pain MILD(1-3)/Fever >100.5/GUZMAN Furosemide 40 mg 05/03/22 10:00 05/04/22 09:28 Furosemide 40 Mg/4 Ml Inj IV 40 mg QDAY GOOD Administration Heparin Sodium (Porcine) 5,000 unit 04/28/22 06:00 05/05/22 06:00 Heparin 5,000 Unit/1 Ml Vial SUB-Q 5,000 unit Q8HR GOOD Administration Hydralazine HCl 10 mg 05/02/22 22:00 05/05/22 06:00 Hydralazine 10 Mg Tab PO 10 mg Q8HR GOOD Administration Hydralazine HCl 10 mg 05/02/22 16:40 05/03/22 00:37 Hydralazine 20 Mg/1 Ml Inj IV 10 mg Q4HR PRN Administration Hypertension Sodium Chloride 1,000 mls @ 150 mls/hr 04/27/22 22:30 05/04/22 22:36 Nacl 0.9% 1000 Ml IV 150 mls/hr DIRECT GOOD Administration Lorazepam 1 mg 04/29/22 12:26 05/04/22 19:32 Lorazepam 2 Mg/Ml Vial IM 1 mg Q6HR PRN Administration Agitation Lorazepam 2 mg 04/29/22 15:38 05/03/22 23:12 Lorazepam 2 Mg/Ml Vial IV 2 mg Q1H PRN Administration CIWA-Ar 8-15 Magnesium Hydroxide 30 ml 04/27/22 22:30 Magnesium Hydroxide (Mom) Oral Liqd Udc PO Q4H PRN Constipation Morphine Sulfate 2 mg 04/27/22 22:30 05/04/22 23:13 Morphine 2 Mg/1 Ml Inj IV 2 mg Q4H PRN Administration Pain, Moderate (4-6) Morphine Sulfate 4 mg 04/27/22 22:30 Morphine 4 Mg/1 Ml Inj IV Q4H PRN Pain , Severe (7-10) Ondansetron HCl 4 mg 04/27/22 22:30 Ondansetron 4 Mg/2 Ml Inj IV Q8H PRN Nausea And Vomiting Sodium Chloride 10 ml 04/28/22 10:00 05/04/22 22:33 Sodium Chloride 0.9% 10 Ml Flush Syringe IV 10 ml BID GOOD Administration Sodium Chloride 10 ml 04/27/22 22:30 Sodium Chloride 0.9% 10 Ml Flush Syringe IV PRN PRN LINE FLUSH Trazodone HCl 50 mg 04/29/22 22:00 05/04/22 22:32 Trazodone 50 Mg Tab PO 50 mg QHS GOOD Administration
[2022-05-05] MEDS: FUROSEMIDE 40 MG/4 ML INJ IV SCH (09:35)
[2022-05-05] MEDS: SODIUM CHLORIDE 0.9% 1000 ML 1,000 ML IV SCH (17:41)
[2022-05-05] MEDS: traZODone 50 MG TAB PO SCH (21:26)
[2022-05-06] MEDS: HEPARIN 5,000 UNIT/1 ML VIAL SUB-Q SCH ×2 (07:15→15:05)
[2022-05-06] MEDS: hydrALAZINE 10 MG TAB PO SCH ×2 (07:15→15:04)
--- NOTE | 2022-05-06 08:55 | Progress Note ---
Assessment and Plan Assessment and plan: Patient continues to be confused. On continuous restraints Patient is originally from prison, may need different type of placement Will check with case management and patient advocate Agustín Stefanie Kolb Patient needs 01/05 care, recommend SNF --Severe hypokalemia; K2.7/resolved Replenished with oral KCl 40 mEq Q 3 hours x 2 and IV KCl 20 mEq x 1 Patient's magnesium is within normal limits Closely monitor electrolytes --acute toxic metabolic encephalopathy; Multifactorial secondary to underlying schizophrenia Rhabdomyolysis, electrolyte imbalance hypokalemia [id number] today, continue rigorous IV hydration Input of monitoring, monitor renal function Psych following --Rhabdomyolysis; with preserved renal function Aggressive IV hydration, input output monitoring Increase oral fluids, Monitor input output Monitor renal function and CK levels Trending down from [id number] today[05/03] --.H/O Recent COVID; COVID-19 test done in the ER is negative Supportive care --H/O Schizophrenia; on 1012 status Continue current home psych medications Management per psych --History of traumatic brain injury; Supportive care, monitor the patient --Obesity; BMI 36.2 Patient needs diet modification exercise as tolerated and weight reduction,When he is medically stable -- DVT prophylaxis Subcu heparin --Full CODE STATUS We will closely monitor the patient and adjust management as needed plan of care reviewed With the patient's nurse Disposition; follow clinically, follow psych evaluation recommendation Psych recommended inpatient psych placement when medically stable We will closely monitor the patient and adjust management as needed Plan of care reviewed with the patient's nurse and the case management Closely monitor electrolytes 05/03; CK levels trending down, continue IV hydration Severe hypokalemia, replenished with p.o. and IV KCl Monitor electrolytes 05/04; CK today is 777, potassium and magnesium levels are within normal limits Continue current management, medically stable for discharge Disposition per psych 05/05; patient is back to baseline, check with the family Discharge planning once psych clears Patient is medically stable for discharge 05/06; patient is still confused, restrained DC planning, patient is from Hospitalist Physical - Constitutional Vitals: Temp Pulse Resp BP Pulse Ox 98.8 F 65 18 123/71 92 05/06/22 05:22 05/06/22 05:22 05/06/22 05:22 05/06/22 05:22 05/06/22 05:22 General appearance: Present: no acute distress, well-nourished HEART Score - HEART Score Troponin: Troponin T < 0.010 ng/mL (0.00-0.029) 04/26/22 18:21 Results - Labs CBC & Chem 7: 05/01/22 04:48 05/05/22 05:43 Labs: Laboratory Last Values WBC 7.3 K/mm3 (4.5-11.0) 05/01/22 04:48 RBC 4.09 M/mm3 (3.65-5.03) 05/01/22 04:48 Hgb 12.0 gm/dl (11.8-15.2) 05/01/22 04:48 Hct 35.7 % (35.5-45.6) 05/01/22 04:48 MCV 87 fl (84-94) 05/01/22 04:48 MCH 29 pg (28-32) 05/01/22 04:48 MCHC 34 % (32-34) 05/01/22 04:48 RDW 15.8 % (13.2-15.2) H 05/01/22 04:48 Plt Count 246 K/mm3 (140-440) 05/01/22 04:48 Lymph % (Auto) 32.0 % (13.4-35.0) 05/01/22 04:48 [place] % (Auto) 9.7 % (0.0-7.3) H 05/01/22 04:48 Eos % (Auto) 3.0 % (0.0-4.3) 05/01/22 04:48 Baso % (Auto) 0.8 % (0.0-1.8) 05/01/22 04:48 Lymph # (Auto) 2.4 K/mm3 (1.2-5.4) 05/01/22 04:48 [place] # (Auto) 0.7 K/mm3 (0.0-0.8) 05/01/22 04:48 Eos # (Auto) 0.2 K/mm3 (0.0-0.4) 05/01/22 04:48 Baso # (Auto) 0.1 K/mm3 (0.0-0.1) 05/01/22 04:48 Seg Neutrophils % 54.5 % (40.0-70.0) 05/01/22 04:48 Seg Neutrophils # 4.0 K/mm3 (1.8-7.7) 05/01/22 04:48 PT 14.2 Sec. (12.2-14.9) 04/26/22 18:21 INR 0.99 (0.87-1.13) 04/26/22 18:21 Sodium 140 mmol/L (137-145) 05/05/22 05:43 Potassium 4.7 mmol/L (3.6-5.0) D 05/05/22 05:43 Chloride 106.0 mmol/L (98-107) 05/05/22 05:43 Carbon Dioxide 18 mmol/L (22-30) L 05/05/22 05:43 Anion Gap 21 mmol/L 05/05/22 05:43 BUN 15 mg/dL (9-20) 05/05/22 05:43 Creatinine 0.4 mg/dL (0.8-1.3) L 05/05/22 05:43 Estimated GFR > 60 ml/min 05/05/22 05:43 BUN/Creatinine Ratio 38 % 05/05/22 05:43 Glucose 113 mg/dL (75-100) H 05/05/22 05:43 POC Glucose 97 mg/dL (70-105) 05/06/22 07:57 Lactic Acid 1.40 mmol/L (0.7-2.0) 04/26/22 18:21 Calcium 9.3 mg/dL (8.4-10.2) 05/05/22 05:43 Phosphorus 1.60 mg/dL (2.5-4.5) L 04/29/22 17:10 Magnesium 1.90 mg/dL (1.7-2.3) 05/05/22 05:43 Total Bilirubin 0.40 mg/dL (0.1-1.2) 05/01/22 04:48 AST 57 units/L (5-40) H 05/01/22 04:48 ALT 41 units/L (7-56) 05/01/22 04:48 Alkaline Phosphatase 76 units/L (35-129) 05/01/22 04:48 Ammonia 26.0 umol/L (25-60) 04/26/22 21:44 Total Creatine Kinase 676 units/L (55-170) H 05/06/22 05:32 Troponin T < 0.010 ng/mL (0.00-0.029) 04/26/22 18:21 C-Reactive Protein 7.20 mg/dL (0.00-1.30) H 04/26/22 18:21 NT-Pro-B Natriuret Pep 75.52 pg/mL (0-900) 04/26/22 18:21 Total Protein 6.6 g/dL (6.3-8.2) 05/01/22 04:48 Albumin 3.9 g/dL (3.9-5) 05/01/22 04:48 Albumin/Globulin Ratio 1.4 % 05/01/22 04:48 Amylase 33 units/L (27-131) 04/29/22 17:10 Urine Color Yellow (Yellow) 04/26/22 18:50 Urine Turbidity Clear (Clear) 04/26/22 18:50 Urine pH 5.0 (5.0-7.0) 04/26/22 18:50 Ur Specific [place] 1.035 (1.003-1.030) H 04/26/22 18:50 Urine Protein 100 mg/dl mg/dL (Negative) 04/26/22 18:50 Urine Glucose (UA) 150 mg/dL (Negative) 04/26/22 18:50 Urine Ketones 100 mg/dL (Negative) 04/26/22 18:50 Urine Blood Negative (Negative) 04/26/22 18:50 Urine Nitrite Negative (Negative) 04/26/22 18:50 Ur Reducing Substances Not Reportable 04/26/22 18:50 Urine Bilirubin Negative (Negative) 04/26/22 18:50 Urine Ictotest Not Reportable 04/26/22 18:50 Urine Urobilinogen 0.0 mg/dL (<2.0) 04/26/22 18:50 Ur Leukocyte Esterase Negative (Negative) 04/26/22 18:50 Urine WBC (Auto) 1.0 /HPF (0.0-6.0) 04/26/22 18:50 Urine RBC (Auto) 2.0 /HPF (0.0-6.0) 04/26/22 18:50 Urine Bacteria (Auto) 1+ /HPF (Negative) 04/26/22 18:50 Urine Opiates Screen Negative 04/26/22 18:50 Urine Methadone Screen Negative 04/26/22 18:50 Acetaminophen 5.0 ug/mL (10.0-30.0) L 04/26/22 18:21 Ur Barbiturates Screen Negative 04/26/22 18:50 Ur Phencyclidine Scrn Negative 04/26/22 18:50 Ur Amphetamines Screen Negative 04/26/22 18:50 U Benzodiazepines Scrn Negative 04/26/22 18:50 Urine Cocaine Screen Negative 04/26/22 18:50 U Marijuana (THC) Screen Negative 04/26/22 18:50 Drugs of Abuse Note Disclamer 04/26/22 18:50 Plasma/Serum Alcohol < 0.01 % (0-0.07) 04/26/22 18:21 SARS-CoV-2 (PCR) Negative (Negative) 04/27/22 14:01 [place]/IV: Voiding Method Indwelling Catheter Active Medications - Current Medications Current Medications: Generic Name Dose Route Start Last Admin Trade Name Freq PRN Reason Stop Dose Admin Acetaminophen 650 mg 04/27/22 22:30 04/29/22 17:47 Acetaminophen 325 Mg Tab PO 650 mg Q4H PRN Administration Pain MILD(1-3)/Fever >100.5/GUZMAN Furosemide 40 mg 05/03/22 10:00 05/05/22 09:35 Furosemide 40 Mg/4 Ml Inj IV 40 mg QDAY GOOD Administration Heparin Sodium (Porcine) 5,000 unit 04/28/22 06:00 05/06/22 07:15 Heparin 5,000 Unit/1 Ml Vial SUB-Q 5,000 unit Q8HR GOOD Administration Hydralazine HCl 10 mg 05/02/22 22:00 05/06/22 07:15 Hydralazine 10 Mg Tab PO 10 mg Q8HR GOOD Administration Hydralazine HCl 10 mg 05/02/22 16:40 05/03/22 00:37 Hydralazine 20 Mg/1 Ml Inj IV 10 mg Q4HR PRN Administration Hypertension Sodium Chloride 1,000 mls @ 150 mls/hr 04/27/22 22:30 05/05/22 17:41 Nacl 0.9% 1000 Ml IV 150 mls/hr DIRECT GOOD Administration Lorazepam 1 mg 04/29/22 12:26 05/04/22 19:32 Lorazepam 2 Mg/Ml Vial IM 1 mg Q6HR PRN Administration Agitation Lorazepam 2 mg 04/29/22 15:38 05/03/22 23:12 Lorazepam 2 Mg/Ml Vial IV 2 mg Q1H PRN Administration CIWA-Ar 8-15 Magnesium Hydroxide 30 ml 04/27/22 22:30 Magnesium Hydroxide (Mom) Oral Liqd Udc PO Q4H PRN Constipation Morphine Sulfate 2 mg 04/27/22 22:30 05/04/22 23:13 Morphine 2 Mg/1 Ml Inj IV 2 mg Q4H PRN Administration Pain, Moderate (4-6) Morphine Sulfate 4 mg 04/27/22 22:30 Morphine 4 Mg/1 Ml Inj IV Q4H PRN Pain , Severe (7-10) Ondansetron HCl 4 mg 04/27/22 22:30 Ondansetron 4 Mg/2 Ml Inj IV Q8H PRN Nausea And Vomiting Sodium Chloride 10 ml 04/28/22 10:00 05/05/22 21:27 Sodium Chloride 0.9% 10 Ml Flush Syringe IV 10 ml BID GOOD Administration Sodium Chloride 10 ml 04/27/22 22:30 Sodium Chloride 0.9% 10 Ml Flush Syringe IV PRN PRN LINE FLUSH Trazodone HCl 50 mg 04/29/22 22:00 05/05/22 21:26 Trazodone 50 Mg Tab PO 50 mg QHS GOOD Administration Nutrition/Malnutrition Assess - Dietary Evaluation Nutrition/Malnutrition Findings: Nutrition Notes Start: 05/05/22 16:54 Freq: Status: Active Protocol: Document 05/05/22 16:54 BANDAR (Rec: 05/05/22 17:15 BANDAR [id number]) Nutrition Notes Need for Assessment generated from: LOS Initial or Follow up Assessment Other Pertinent Diagnosis Schizophrenia/1013 Status, Metabolic Encephalopathy, Brain Injury, Rabdomyo Current Diet Regular Diet (since 04/28), D Suppl (from 05/06). Labs/Tests 05/05: CO2 18, Crea 0.4, Glu 113. Pertinent Medications 05/05: Nutritionally unremarkable. 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 Weight Status Obese Subjective/Other Information RD consult for LOS assessment. Pt's PO has been Poor (25%), according to ADL notes. I will prescribe dietary supplements to compensate for poor or insufficient PO intake of meals during LOS. Pt is on Room Air, O2 saturation @ 99%, according to Physical Assessment History notes. 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 Percent of energy/protein needs met: Prescribed Regular Diet provides for energy/protein needs (2,289 Kcal/89 g) during LOS; additionally, Dietary Supplements will compensate for possible poor or insufficient PO intake of meals with 1,050 Kcal and 60 g of protein. Burn Absent Trauma Absent GI Symptoms None Skin Integrity/Comment Assessment WNL. 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 As Evidenced by Signs and Symptoms Pt's PO has been Poor (25%) for more than 5 days, according to ADL notes, and has a significantly weakened holiday detector operator, according to Physical Assessment History notes. Is patient on ventilator? No Is Patient Ambulatory and/or Out of Bed No REE-([facility]-confined to bed) 2107.452 Kcal/Kg value to use for calculation 16 Approximate Energy Requirements Using 1578 kcal/Kg Calculation Used for Recommendations Kcal/kg Additional Notes Protein: 0.8-1 g/Kg AdjBW; 64- 81 g/day. Fluids: 1 ml/Kcal, or as per MD. Nutrition Intervention Change Diet Order: Continue Regular Diet. Add Supplement/Snack (indicate name/kcal Start 8 fl oz Ensure Enlive; /protein ) TID. Provides kCal: 1,050 Provides Protein (gm) 60 Goal #1 Compensate, through dietary supplementation, for possible poor or insufficient PO intake of meals during LOS. Goal #2 Adjust the dietary intervention to better serve Pt's needs and clinical conditions during LOS. Follow-Up By: 05/12/22 Additional Comments Continue monitoring food tolerance, %PO intake of meals , dietary supplements, and BM.
[2022-05-06] MEDS: FUROSEMIDE 40 MG/4 ML INJ IV SCH (11:03)
--- NOTE | 2022-05-06 12:37 | Discharge Summary ---
Providers - Providers Date of Admission: 04/27/22 22:30 Date of discharge: 05/06/22 Attending physician: PATI VALIENTE 04/28/22 19:42 psychiatry consult [Consult to Mental Health] [CONS] Routine Reason For Exam: Schizophrenia 05/06/22 08:49 Occupational Therapy Evaluate and Treat [CONS] Routine Comment: Reason For Exam: Evaluate and treat/DC needs Physical Therapy Evaluation and Treat [CONS] Routine Comment: Reason For Exam: Evaluate and treat/DC needs 05/06/22 11:58 Physical Therapy Evaluation and Treat [CONS] Urgent Comment: Reason For Exam: Debility Mode of Transport?: Luis Primary care physician: KENNEL OPERATOR Hospitalization Condition: Stable Hospital course: --Severe hypokalemia; K2.7/resolved Replenished with oral KCl 40 mEq Q 3 hours x 2 and IV KCl 20 mEq x 1 Patient's magnesium is within normal limits Closely monitor electrolytes --acute toxic metabolic encephalopathy; Multifactorial secondary to underlying schizophrenia Rhabdomyolysis, electrolyte imbalance hypokalemia [id number] today, continue rigorous IV hydration Input of monitoring, monitor renal function Psych following --Rhabdomyolysis; with preserved renal function Aggressive IV hydration, input output monitoring Increase oral fluids, Monitor input output Monitor renal function and CK levels Trending down from [id number] today[05/03] --.H/O Recent COVID; COVID-19 test done in the ER is negative Supportive care --H/O Schizophrenia; on 101 status Continue current home psych medications Management per psych --History of traumatic brain injury; Supportive care, monitor the patient --Obesity; BMI 36.2 Patient needs diet modification exercise as tolerated and weight reduction,When he is medically stable -- DVT prophylaxis Subcu heparin --Full CODE STATUS We will closely monitor the patient and adjust management as needed plan of care reviewed With the patient's nurse Disposition: 04 [facility] Final Discharge Diagnosis (Prints w/discharge instructions): severe hypokalemia/resolved. Acute toxic metabolic encephalopathy improved. Rhabdomyolysis improved. History of recent COVID stable. History of schizophrenia psych cleared for discharge. History of traumatic brain injury stable. Obesity BMI 35.4. DVT prophylaxis Time spent for discharge: 35 minutes Core Measure Documentation - Palliative Care Palliative Care/ Comfort Measures: Not Applicable - Core Measures Any of the following diagnoses?: none Exam - Constitutional Vitals: Temp Pulse Resp BP Pulse Ox 98.8 F 65 18 123/71 92 05/06/22 05:22 05/06/22 05:22 05/06/22 05:22 05/06/22 05:22 05/06/22 05:22 General appearance: Present: no acute distress, well-nourished - EENT Eyes: Present: PERRL, EOM intact - Neck Neck: Present: supple, normal ROM - Respiratory Respiratory effort: normal Respiratory: bilateral: diminished, negative: rales, rhonchi, wheezing - Cardiovascular Rhythm: regular Heart Sounds: Present: S1 & S2 - Extremities Extremities: no ischemia, No edema - Abdominal General gastrointestinal: Present: soft, non-tender, non-distended, normal bowel sounds - Integumentary Integumentary: Present: clear, warm - Musculoskeletal Musculoskeletal: strength equal bilaterally - Psychiatric Psychiatric: other (Minimally communicative) - Neurologic Neurologic: other (Jazmyn) Plan Activity: advance as tolerated, fall precautions Diet: regular Additional Instructions: Nutrition supplements Ensure Enlive 1 can 3 times a day. Fall precautions. Worsening symptoms contact MD or emergency room. Advi sed to see primary care physician in 3-5 days Follow up with: PRIMARY CARE,MD [Primary Care Provider] - 3-5 Days Prescriptions: hydrALAZINE [Apresoline TAB] 10 mg PO Q8HR #90 tablet traZODone [Desyrel] 50 mg PO QHS #30 tablet Furosemide [Lasix] 20 mg PO QDAY #20 tablet
[2022-05-06 13:53] VITALS: BP 146/72
== END 2022-05-06 17:22 | disposition home or self-care (01) | DRG 92 ==
LOC: ED 16:41 → 3A 04-27 22:30
PROVIDERS: ADMIT Internal Medicine Geriatric Medicine; ATTEND Internal Medicine
DX: G92.8 Other toxic encephalopathy (principal); M62.82 Rhabdomyolysis; E87.6 Hypokalemia; F20.9 Schizophrenia, unspecified; Z20.822 Contact with and (suspected) exposure to COVID-19; E66.9 Obesity, unspecified; Z68.36 Body mass index [BMI] 36.0-36.9, adult
CPT/HCPCS: 36415; 70450; 71045; 80048; 80053; 80307; 80320; 81001; 82140; 82150; 82310; 82550; 82962; 83735; 83880; 84100; 84132; 84484; 85025; 85610; 86140; 87040; 93005; 96361; 96374; 96376; G0378; G0480; J0360; J1644; J1940; J2060; J2270; J3475; J3480; J7030; J7120; U0003